=== PATIENT | male | born 1980 | race Caucasian/White ===

== ENCOUNTER 2017-06-27 12:16 | Emergency (ER) | payer BC, MEDICARE ==
[2017-06-27] MEDS ORDERED: Sodium Chloride 0.9% 1,000 ML IV ONE (12:35)
[2017-06-27 12:53] LABS: CHLORIDE,CL 107 mmol/L (98-107); SODIUM,NA 141 mmol/L (136-145)
[2017-06-27] MEDS ORDERED: Meclizine 25 MG Tab PO ONE (13:08)
[2017-06-27] MEDS ORDERED: Ondansetron 4 MG Tab.DIS PO ONE (13:09)
[2017-06-27] MEDS ORDERED: Metoprolol Tartrate 25 MG Tab PO ONE (13:09)
[2017-06-27] MEDS ORDERED: Metoprolol Tartrate 5 MG/5 ML SDV IVPUSH ONE (13:10)
--- NOTE | 2017-06-27 13:26 | EDM.PDOC ---
ED HPI GENERAL MEDICAL PROBLEM - General Chief Complaint: General Stated Complaint: weakness, dizziness, nausea Time Seen by Provider: 06/27/17 12:33 Source of Information: Reports: Patient History Limitations: Reports: No Limitations - History of Present Illness INITIAL COMMENTS - FREE TEXT/NARRATIVE: Patient driven here by friend for evaluation of dizziness and nausea. Woke around 11:30am with this. Says he has not had similar issues before. Denies chest pain, other new pain, SOB, sweating. Admits to being under a significant amount of stress over the last four days due to his brother being in court for and ultimately convicted of vehicular manslaughter. Has PRN BID anxiolytic but has not taken it. Had two pieces of toast today to eat. Appetite has also been poor over the last few days. New new medications or supplement. No recent illness or trauma. Has not hit head. Feels otherwise like usual self. ROS otherwise unremarkable. Dizziness has improved since arrival to ER. Not made worse with head rotation. Position change does not seem to affect complaint. General Pain Score (Numeric/FACES): 5 - Related Data Allergies Allergy/AdvReac Type Severity Reaction Status Date / Time acemetacin Allergy Intermediate Nausea and Verified 06/27/17 12:31 Vomiting acetaminophen Allergy Intermediate Nausea and Verified 06/27/17 12:31 Vomiting Home Meds: Home Meds traMADol HCl [Tramadol HCl] 50 mg PO Q6H PRN 07/27/14 [History] LORazepam 0.5 mg PO BID PRN 06/27/17 [History] Ondansetron [Zofran] 4 mg PO Q6H PRN #10 tab 06/27/17 [Rx] Past Medical History HEENT History: Reports: Impaired Vision Other HEENT History: wears glasses. 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 Neurological History: Reports: None Psychiatric History: Reports: ADD, ADHD, Addiction, Anxiety, Depression Endocrine/Metabolic History: Reports: Obesity/BMI 30+ Hematologic History: Reports: None Immunologic History: Reports: None Oncologic (Cancer) History: Reports: None Dermatologic History: Reports: None - Infectious Disease History Infectious Disease History: Reports: Chicken Pox - Past Surgical History Head Surgeries/Procedures: Reports: None HEENT Surgical History: Reports: Adenoidectomy, Oral Surgery, Tonsillectomy Cardiovascular Surgical History: Reports: None GI Surgical History: Reports: Colonoscopy Endocrine Surgical History: Reports: None Neurological Surgical History: Reports: None Musculoskeletal Surgical History: Reports: Other (See Below) Oncologic Surgical History: Reports: None Dermatological Surgical History: Reports: None - Past Imaging History Past Imaging History: Reports: CAT Scan, MRI Social & Family History - Family History HEENT: Reports: None Cardiac: Reports: Bypass, CAD Respiratory: Reports: Sleep Apnea GI: Reports: None OBGYN: Reports: None Musculoskeletal: Reports: None Neurological: Reports: None Psychiatric: Reports: None Endocrine/Metabolic: Reports: None Hematologic: Reports: None Immunologic: Reports: None Dermatologic: Reports: None Oncologic: Reports: Pancreatic - Tobacco Use Smoking Status *Q: Current Every Day Smoker Years of Tobacco use: 15 Packs/Tins Daily: 0.7 Month Tobacco Last Used: Trying to quit with no use during the last 3 weeks Second Hand Smoke Exposure: No - Caffeine Use Caffeine Use: Reports: Coffee, Soda - Alcohol Use Days Per Week of Alcohol Use: 0 Number of Drinks Per Day: 12 Total Drinks Per Week: 0 - Recreational Drug Use Recreational Drug Use: No Drug Use in Last 12 Months: No - Living Situation & Occupation Living situation: Reports: , with Family Occupation: Disabled ED ROS GENERAL - Review of Systems Review Of Systems: See Below Constitutional: Reports: Decreased Appetite. Denies: Fever, Chills, Malaise, Weakness, Fatigue, Night Sweats, Diaphoresis, Weight Loss, Weight Gain HEENT: Reports: No Symptoms. Denies: Vertigo, Vision Change Respiratory: Reports: No Symptoms Cardiovascular: Reports: Lightheadedness. Denies: Chest Pain, Dyspnea on Exertion, Palpitations, Syncope Endocrine: Reports: No Symptoms GI/Abdominal: Reports: Nausea. Denies: Abdominal Pain, Constipation, Diarrhea, Distension, Hematemesis, Hematochezia, Vomiting : Reports: No Symptoms Musculoskeletal: Reports: Other (has chronic pain/fibromyalgia. No acute changes noted. ) Skin: Reports: No Symptoms Neurological: Reports: Dizziness, Difficulty Walking (lost balance). Denies: Confusion, Headache, Numbness, Paresthesia, Seizure, Syncope, Tingling, Tremors , Trouble Speaking, Weakness, Change in Speech Psychiatric: Reports: Anxiety. Denies: Hallucinations, Homicidal Ideation, Suicidal Ideation Hematologic/Lymphatic: Reports: No Symptoms ED EXAM, GENERAL - Physical Exam Exam: See Below Exam Limited By: No Limitations General Appearance: Alert, No Apparent Distress, Obese Eye Exam: Bilateral Eye: EOMI, PERRL Ears: Normal External Exam, Normal Canal, Hearing Grossly Normal, Normal TMs Nose: Normal Inspection Throat/Mouth: Normal Inspection, Normal Lips, Normal Teeth (has dentures), Normal Gums, Normal Oropharynx, Normal Voice, No Airway Compromise Head: Atraumatic, Normocephalic Neck: Normal Inspection, Supple, Non-Tender, Full Range of Motion Respiratory/Chest: No Respiratory Distress, Lungs Clear, Normal Breath Sounds, No Accessory Muscle Use, Chest Non-Tender Cardiovascular: Normal Peripheral Pulses, Regular Rate, Rhythm, No Edema, No Murmur Peripheral Pulses: 2+: Radial (L), Radial (R) GI/Abdominal: Normal Bowel Sounds, Soft, Non-Tender, No Distention (Male) Exam: Deferred Rectal (Males) Exam: Deferred Extremities: Normal Inspection Neurological: Alert, Oriented, CN II-XII Intact, Normal Cognition, No Motor/ Sensory Deficits Psychiatric: Normal Affect, Normal Mood Skin Exam: Warm, Dry, Intact, Normal Color EKG INTERPRETATION EKG Date: 06/27/17 Time: 12:21 Rhythm: Other (Occasional PVCs. Otherwise sinus rhythm.) Rate (Beats/Min): 73 [place]: Normal P-Wave: Present QRS: Normal ST-T: Normal QT: Normal Comparison: No Change Course - Vital Signs Last Recorded V/S: Last Vital Signs Temp 36.7 C 06/27/17 13:35 Pulse 64 06/27/17 14:05 Resp 18 06/27/17 14:05 BP 125/83 06/27/17 14:05 Pulse Ox 99 06/27/17 14:05 - Orders/Labs/Meds Orders: Active Orders 24 hr Category Date Time Status Blood Glucose Check, Bedside [RC] ONETIME Care 06/27/17 12:37 Active EKG Documentation Completion [RC] ASDIRECTED Care 06/27/17 12:35 Active Chest 2V [CR] Stat Exams 06/27/17 13:58 Taken Sodium Chloride 0.9% [Saline Flush] Med 06/27/17 12:36 Active 10 ml FLUSH ASDIRECTED PRN Saline Lock Insert [OM.PC] Routine Oth 06/27/17 12:36 Ordered Medication Orders Sodium Chloride (Saline Flush) 10 ml FLUSH ASDIRECTED PRN PRN Reason: Keep Vein Open Last Admin: 06/27/17 15:34 Dose: 10 ml Admin: 06/27/17 13:28 Dose: 10 ml Labs: Laboratory Tests 06/27/17 06/27/17 06/27/17 Range/Units 11:25 11:25 12:25 WBC 10.0 (4.0-10.2) K/uL RBC 5.16 (4.33-5.41) M/uL Hgb 16.5 (13.1-16.8) g/dL Hct 48.1 (39.0-49.0) % MCV 93.2 (84.0-98.0) fL MCH 32.0 (28.2-33.3) pg MCHC 34.3 (31.7-36.0) g/dL RDW 13.9 (11.2-14.1) % Plt Count 130 L (150-350) K/uL Neut % (Auto) 54.7 (45.0-80.0) % Lymph % (Auto) 37.9 (10.0-50.0) % [place] % (Auto) 5.4 (2.0-14.0) % Eos % (Auto) 1.7 (0.0-5.0) % Baso % (Auto) 0.3 (0.0-2.0) % Neut # (Auto) 5.45 (1.40-7.00) K/uL Lymph # (Auto) 3.77 H (0.50-3.50) K/uL [place] # (Auto) 0.54 (0.00-1.00) K/uL Eos # (Auto) 0.17 (0.00-0.50) K/uL Baso # (Auto) 0.03 (0.00-0.20) K/uL D-Dimer, Quantitative < 100 (0-400) ng/mL Sodium (136-145) mmol/L Potassium (3.5-5.1) mmol/L Chloride (98-107) mmol/L Carbon Dioxide (21.0-32.0) mmol/L BUN (7-18) mg/dL Creatinine (0.51-1.17) mg/dL Est Cr Clr Drug Dosing mL/min Estimated GFR (MDRD) mL/min Glucose (74-106) mg/dL Lactic Acid (0.4-2.0) mmol/L Calcium (8.5-10.1) mg/dL Total Bilirubin (0.2-1.0) mg/dL AST (15-37) U/L ALT (12-78) U/L Alkaline Phosphatase (46-116) IU/L Creatine Kinase (26-308) U/L Creatine Kinase Index (0.0-2.5) % CK-MB (CK-2) (0.00-3.60) ng/mL Troponin I (0.000-0.056) ng/mL Total Protein (6.4-8.2) g/dL Albumin (3.4-5.0) g/dL TSH, Ultra Sensitive 0.740 (0.358-3.740) mIU/mL Specimen Type Urine Color Urine Appearance Urine pH (5.0-9.0) Ur Specific [place] (1.005-1.030) Urine Protein (NEGATIVE) mg/dL Urine Glucose (UA) (NEGATIVE) mg/dL Urine Ketones (NEGATIVE) mg/dL Urine Occult Blood (NEGATIVE) Urine Nitrite (NEGATIVE) Urine Bilirubin (NEGATIVE) Urine Urobilinogen (0.2-1.0) E.U./dL Ur Leukocyte Esterase (NEGATIVE) Urine RBC /HPF Urine WBC /HPF Ur Epithelial Cells /LPF Urine Bacteria (NONE TO FEW) /HPF 06/27/17 06/27/17 06/27/17 Range/Units 12:25 12:25 12:25 WBC (4.0-10.2) K/uL RBC (4.33-5.41) M/uL Hgb (13.1-16.8) g/dL Hct (39.0-49.0) % MCV (84.0-98.0) fL MCH (28.2-33.3) pg MCHC (31.7-36.0) g/dL RDW (11.2-14.1) % Plt Count (150-350) K/uL Neut % (Auto) (45.0-80.0) % Lymph % (Auto) (10.0-50.0) % [place] % (Auto) (2.0-14.0) % Eos % (Auto) (0.0-5.0) % Baso % (Auto) (0.0-2.0) % Neut # (Auto) (1.40-7.00) K/uL Lymph # (Auto) (0.50-3.50) K/uL [place] # (Auto) (0.00-1.00) K/uL Eos # (Auto) (0.00-0.50) K/uL Baso # (Auto) (0.00-0.20) K/uL D-Dimer, Quantitative (0-400) ng/mL Sodium 141 (136-145) mmol/L Potassium 3.5 (3.5-5.1) mmol/L Chloride 107 (98-107) mmol/L Carbon Dioxide 24.4 (21.0-32.0) mmol/L BUN 10 (7-18) mg/dL Creatinine 0.83 (0.51-1.17) mg/dL Est Cr Clr Drug Dosing 128.52 mL/min Estimated GFR (MDRD) > 60 mL/min Glucose 114 H (74-106) mg/dL Lactic Acid 1.3 (0.4-2.0) mmol/L Calcium 8.8 (8.5-10.1) mg/dL Total Bilirubin 0.7 (0.2-1.0) mg/dL AST 24 (15-37) U/L ALT 54 (12-78) U/L Alkaline Phosphatase 81 (46-116) IU/L Creatine Kinase 147 (26-308) U/L Creatine Kinase Index 0.2 (0.0-2.5) % CK-MB (CK-2) 0.30 (0.00-3.60) ng/mL Troponin I 0.000 (0.000-0.056) ng/mL Total Protein 7.1 (6.4-8.2) g/dL Albumin 3.8 (3.4-5.0) g/dL TSH, Ultra Sensitive (0.358-3.740) mIU/mL Specimen Type Urine Color Urine Appearance Urine pH (5.0-9.0) Ur Specific [place] (1.005-1.030) Urine Protein (NEGATIVE) mg/dL Urine Glucose (UA) (NEGATIVE) mg/dL Urine Ketones (NEGATIVE) mg/dL Urine Occult Blood (NEGATIVE) Urine Nitrite (NEGATIVE) Urine Bilirubin (NEGATIVE) Urine Urobilinogen (0.2-1.0) E.U./dL Ur Leukocyte Esterase (NEGATIVE) Urine RBC /HPF Urine WBC /HPF Ur Epithelial Cells /LPF Urine Bacteria (NONE TO FEW) /HPF 06/27/17 Range/Units 14:47 WBC (4.0-10.2) K/uL RBC (4.33-5.41) M/uL Hgb (13.1-16.8) g/dL Hct (39.0-49.0) % MCV (84.0-98.0) fL MCH (28.2-33.3) pg MCHC (31.7-36.0) g/dL RDW (11.2-14.1) % Plt Count (150-350) K/uL Neut % (Auto) (45.0-80.0) % Lymph % (Auto) (10.0-50.0) % [place] % (Auto) (2.0-14.0) % Eos % (Auto) (0.0-5.0) % Baso % (Auto) (0.0-2.0) % Neut # (Auto) (1.40-7.00) K/uL Lymph # (Auto) (0.50-3.50) K/uL [place] # (Auto) (0.00-1.00) K/uL Eos # (Auto) (0.00-0.50) K/uL Baso # (Auto) (0.00-0.20) K/uL D-Dimer, Quantitative (0-400) ng/mL Sodium (136-145) mmol/L Potassium (3.5-5.1) mmol/L Chloride (98-107) mmol/L Carbon Dioxide (21.0-32.0) mmol/L BUN (7-18) mg/dL Creatinine (0.51-1.17) mg/dL Est Cr Clr Drug Dosing mL/min Estimated GFR (MDRD) mL/min Glucose (74-106) mg/dL Lactic Acid (0.4-2.0) mmol/L Calcium (8.5-10.1) mg/dL Total Bilirubin (0.2-1.0) mg/dL AST (15-37) U/L ALT (12-78) U/L Alkaline Phosphatase (46-116) IU/L Creatine Kinase (26-308) U/L Creatine Kinase Index (0.0-2.5) % CK-MB (CK-2) (0.00-3.60) ng/mL Troponin I (0.000-0.056) ng/mL Total Protein (6.4-8.2) g/dL Albumin (3.4-5.0) g/dL TSH, Ultra Sensitive (0.358-3.740) mIU/mL Specimen Type Urinvoid Urine Color Yellow Urine Appearance Clear Urine pH 8.5 (5.0-9.0) Ur Specific [place] 1.015 (1.005-1.030) Urine Protein Negative (NEGATIVE) mg/dL Urine Glucose (UA) Negative (NEGATIVE) mg/dL Urine Ketones Negative (NEGATIVE) mg/dL Urine Occult Blood Small H (NEGATIVE) Urine Nitrite Negative (NEGATIVE) Urine Bilirubin Negative (NEGATIVE) Urine Urobilinogen 0.2 (0.2-1.0) E.U./dL Ur Leukocyte Esterase Negative (NEGATIVE) Urine RBC 5-10 H /HPF Urine WBC 0-5 /HPF Ur Epithelial Cells Few /LPF Urine Bacteria Occasional (NONE TO FEW) /HPF Meds: Medications Generic Name Dose Route Start Last Admin Trade Name Freq PRN Reason Stop Dose Admin Sodium Chloride 10 ml 06/27/17 12:36 06/27/17 15:34 Saline Flush FLUSH 10 ml ASDIRECTED PRN Administration Keep Vein Open Discontinued Medications Generic Name Dose Route Start Last Admin Trade Name Freq PRN Reason Stop Dose Admin Sodium Chloride 1,000 mls @ 999 mls/hr 06/27/17 12:35 06/27/17 12:39 Normal Saline IV 06/27/17 13:35 999 mls/hr .BOLUS ONE Administration Lorazepam 0.5 mg 06/27/17 15:23 06/27/17 15:34 Ativan IVPUSH 06/27/17 15:24 0.5 mg ONETIME ONE Administration Meclizine HCl 25 mg 06/27/17 13:08 06/27/17 13:27 Antivert PO 06/27/17 13:09 25 mg ONETIME ONE Administration Metoprolol Tartrate 25 mg 06/27/17 13:09 06/27/17 15:33 Lopressor PO 06/27/17 13:10 Not Given ONETIME ONE Metoprolol Tartrate 2.5 mg 06/27/17 13:10 06/27/17 13:27 Lopressor IVPUSH 06/27/17 13:11 2.5 mg ONETIME ONE Administration Ondansetron HCl 4 mg 06/27/17 13:09 06/27/17 13:27 Zofran Odt PO 06/27/17 13:10 4 mg ONETIME ONE Administration - Radiology Interpretation Free Text/Narrative:: Chest xray overall unremarkable. No infiltrates. - Re-Assessments/Exams Free Text/Narrative Re-Assessment/Exam: 06/27/17 13:35 Patient already improving by the time he was evaluated. Noted that he had elevated BP upon arrival but this had begun to improve. Non-focal exam. No nystagmus. Initial labs, including troponin, overall unremarkable. EKG did not suggest ischemia or cardiac cause for complaint. [place] to be more likely stress related and could not discount contribution from earlier elevated BP. Patient given Meclizine, Zofran, and small amount Lopressor. Observed. 06/27/17 16:05 Additional labs ordered, including DDimer, after family mentioned that they felt patient was more SOB than usual. Patient himself denied this. Labs unremarkable. Chest xray unremarkable. Patient's BP improved immediately after Lopressor. He felt that he was about 80 % improved compared to initial presentation. Extensive amount of time spent discussing patient's smoking and lifestyle risk factors. Strongly encouraged to make changes in order to promote better health. Small dose Ativan IV given. This resulted in complete resolution of patient's complaint. He no longer had any sensation of lightheadedness and said that he felt like his usual self. Plans made to discharge patient home. Continue to strongly suspect anxiety and stress as cause for today's complaint. Patient knows to return to the ER over the weekend if problems return. Extensive precautions reviewed prior to discharge. He is to take his home medication for anxiety as prescribed for the next 3 days. Zofran Rx sent to pharmacy in case nausea returns. He is also encouraged to last picker Meclizine for PRN use. Patient had no further questions and was discharged from the ER in much improved condition. Ambulated/changed position easily. Departure - Departure Time of Disposition: 15:56 Disposition: Home, Self-Care 01 Condition: Good Clinical Impression: Anxiety, Dizziness - Discharge Information Prescriptions: Ondansetron [Zofran] 4 mg PO Q6H PRN #10 tab PRN Reason: Nausea Referrals: Pasha Mauro NP [Primary Care Provider] - Forms: ED Department Discharge Additional Instructions: Take all of your medications as prescribed, including Lorazepam. You may also last picker Meclizine from the pharmacy. It needs no prescription. You may take one tablet every 6 hours as needed to help with dizziness if it returns. You received a prescription for nausea. Take it as needed for nausea if it returns. Dietary changes as discussed strongly recommended. Follow up as needed in ER over the weekend if you re-develop problems. - My Orders Last 24 Hours: My Active Orders 06/27/17 12:35 EKG Documentation Completion [RC] ASDIRECTED 06/27/17 12:36 Sodium Chloride 0.9% [Saline Flush] 10 ml FLUSH ASDIRECTED PRN Saline Lock Insert [OM.PC] Routine 06/27/17 12:37 Blood Glucose Check, Bedside [RC] ONETIME 06/27/17 13:58 Chest 2V [CR] Stat - Assessment/Plan Last 24 Hours: My Active Orders 06/27/17 12:35 EKG Documentation Completion [RC] ASDIRECTED 06/27/17 12:36 Sodium Chloride 0.9% [Saline Flush] 10 ml FLUSH ASDIRECTED PRN Saline Lock Insert [OM.PC] Routine 06/27/17 12:37 Blood Glucose Check, Bedside [RC] ONETIME 06/27/17 13:58 Chest 2V [CR] Stat
[2017-06-27] MEDS: Sodium Chloride 0.9% 10 ML Syringe FLUSH PRN ×2 (13:28→15:34)
[2017-06-27] MEDS ORDERED: LORazepam 2 MG/ML MDV IVPUSH ONE (15:23)
[2017-06-27 17:13] VITALS: BP 123/69
== END 2017-06-27 16:20 | disposition home or self-care (01) ==
LOC: LL.ED 12:16
DX: F41.9 Anxiety disorder, unspecified (principal); R42 Dizziness and giddiness; F17.210 Nicotine dependence, cigarettes, uncomplicated; Z88.6 Allergy status to analgesic agent; Z88.8 Allergy status to other drugs, medicaments and biological substances
CPT/HCPCS: 36415; 71020; 80053; 81001; 82550; 82553; 82962; 83605; 84443; 84484; 85025; 85379; 93005; 96361; 96374; 96375; 99284; A9270; J2060; J7030; J7050; J3490

== ENCOUNTER 2017-06-28 19:26 | Emergency (ER) | payer BC, MEDICARE ==
[2017-06-28] MEDS ORDERED: Sodium Chloride 0.9% 10 ML Syringe FLUSH PRN (19:31)
[2017-06-28] MEDS ORDERED: methylPREDNISolone Sodium Succinate 125 MG/2 ML SDV IVPUSH ONE (20:07)
[2017-06-28 20:16] VITALS: BP 130/94
[2017-06-28 20:22] LABS: CHLORIDE,CL 106 mmol/L (98-107); SODIUM,NA 141 mmol/L (136-145)
--- NOTE | 2017-06-28 20:35 | EDM.PDOC ---
ED HPI GENERAL MEDICAL PROBLEM - General Chief Complaint: Neurological Problem Stated Complaint: blurred vision, dizziness Time Seen by Provider: 06/28/17 19:59 Source of Information: Reports: Patient History Limitations: Reports: No Limitations - History of Present Illness INITIAL COMMENTS - FREE TEXT/NARRATIVE: Patient comes to ER with complaint of dizziness and blurred vision. Was seen here yesterday for dizziness. He had significant improvement with Meclizine as well as antihypertensive. Additional improvement with anxiolytic. Had essentially complete resolution of complaint after receiving Ativan. [place] to have stress/anxiety component to his complaint. Discharged home with PRN Meclizine and Zofran. Tonight he re-presents to ER. He is concerned due to his vision feeling funny and having initial hard time focusing whenever he moves his head. It does clear within a few seconds. Head rotation continues to trigger mild dizziness, although patient admits that it is much better today than it was yesterday. It did not bother him when he was turning while laying in bed overnight. Has had an emesis as a result of the vertigo since discharge from ER No other changes. Pain free. 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: Other Medication(s) - Related Data Allergies Allergy/AdvReac Type Severity Reaction Status Date / Time acemetacin Allergy Intermediate Nausea and Verified 06/28/17 19:30 Vomiting acetaminophen Allergy Intermediate Nausea and Verified 06/28/17 19:30 Vomiting Home Meds: Home Meds traMADol HCl [Tramadol HCl] 50 mg PO Q6H PRN 07/27/14 [History] LORazepam 0.5 mg PO BID PRN 06/27/17 [History] Ondansetron [Zofran] 4 mg PO Q6H PRN #10 tab 06/27/17 [Rx] Meclizine [Antivert] 1 tab PO DAILY 06/28/17 [History] Past Medical History HEENT History: Reports: Impaired Vision Other HEENT History: wears glasses. 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 Neurological History: Reports: None Psychiatric History: Reports: ADD, ADHD, Addiction, Anxiety, Depression Endocrine/Metabolic History: Reports: Obesity/BMI 30+ Hematologic History: Reports: None Immunologic History: Reports: None Oncologic (Cancer) History: Reports: None Dermatologic History: Reports: None - Infectious Disease History Infectious Disease History: Reports: Chicken Pox - Past Surgical History Head Surgeries/Procedures: Reports: None HEENT Surgical History: Reports: Adenoidectomy, Oral Surgery, Tonsillectomy Cardiovascular Surgical History: Reports: None GI Surgical History: Reports: Colonoscopy Endocrine Surgical History: Reports: None Neurological Surgical History: Reports: None Musculoskeletal Surgical History: Reports: Other (See Below) Oncologic Surgical History: Reports: None Dermatological Surgical History: Reports: None - Past Imaging History Past Imaging History: Reports: CAT Scan, MRI Social & Family History - Family History HEENT: Reports: None Cardiac: Reports: Bypass, CAD Respiratory: Reports: Sleep Apnea GI: Reports: None OBGYN: Reports: None Musculoskeletal: Reports: None Neurological: Reports: None Psychiatric: Reports: None Endocrine/Metabolic: Reports: None Hematologic: Reports: None Immunologic: Reports: None Dermatologic: Reports: None Oncologic: Reports: Pancreatic - Tobacco Use Smoking Status *Q: Current Every Day Smoker Years of Tobacco use: 15 Packs/Tins Daily: 0.7 Month Tobacco Last Used: Trying to quit with no use during the last 3 weeks Second Hand Smoke Exposure: No - Caffeine Use Caffeine Use: Reports: Coffee, Soda - Alcohol Use Days Per Week of Alcohol Use: 0 Number of Drinks Per Day: 12 Total Drinks Per Week: 0 - Recreational Drug Use Recreational Drug Use: No Drug Use in Last 12 Months: No - Living Situation & Occupation Living situation: Reports: , with Family Occupation: Disabled ED ROS GENERAL - Review of Systems Review Of Systems: See Below Constitutional: Reports: No Symptoms HEENT: Reports: Vertigo, Vision Change. Denies: Ear Discharge, Ear Pain, Eye Discharge, Eye Pain, Nose Pain, Rhinitis, Sinus Problem, Throat Pain, Throat Swelling Respiratory: Reports: No Symptoms Cardiovascular: Reports: No Symptoms GI/Abdominal: Reports: Nausea (intermittent), Vomiting (once in last 24 hours). Denies: Abdominal Pain, Constipation, Diarrhea, Hematemesis, Hematochezia : Reports: No Symptoms Musculoskeletal: Reports: No Symptoms Skin: Reports: No Symptoms Neurological: Reports: No Symptoms Psychiatric: Reports: No Symptoms Hematologic/Lymphatic: Reports: No Symptoms ED EXAM, GENERAL - Physical Exam Exam: See Below Exam Limited By: No Limitations General Appearance: Alert, WD/WN, No Apparent Distress, Other (Patient ambulated well, sat up straight on ER bed, changed position easily. Appeared comfortable. ) Eye Exam: Bilateral Eye: EOMI, Normal Inspection, PERRL Ears: Normal External Exam, Normal Canal, Hearing Grossly Normal, Normal TMs Nose: Normal Inspection Throat/Mouth: Normal Inspection, Normal Voice, No Airway Compromise Head: Atraumatic, Normocephalic Neck: Normal Inspection, Supple, Non-Tender, Full Range of Motion Respiratory/Chest: No Respiratory Distress, Lungs Clear, Normal Breath Sounds, No Accessory Muscle Use, Chest Non-Tender Cardiovascular: Normal Peripheral Pulses, Regular Rate, Rhythm, No Murmur Peripheral Pulses: 2+: Radial (L), Radial (R) GI/Abdominal: Normal Bowel Sounds, Soft, No Distention Extremities: Normal Inspection, Normal Range of Motion, Non-Tender, No Pedal Edema, Normal Capillary Refill Neurological: Alert, Oriented, CN II-XII Intact, Normal Cognition, Normal Gait, Normal Reflexes, No Motor/Sensory Deficits Psychiatric: Normal Affect, Normal Mood Skin Exam: Warm, Dry, Intact, Normal Color Course - Vital Signs Last Recorded V/S: Last Vital Signs Temp 36.8 C 06/28/17 20:15 Pulse 82 06/28/17 20:15 Resp 16 06/28/17 20:15 BP 130/94 H 06/28/17 20:15 Pulse Ox 99 06/28/17 20:15 - Orders/Labs/Meds Orders: Active Orders 24 hr Category Date Time Status Head wo Cont [CT] Stat Exams 06/28/17 19:27 Taken Saline Lock Insert [OM.PC] Routine Oth 06/28/17 19:31 Ordered Labs: Laboratory Tests 06/28/17 06/28/17 Range/Units 19:55 19:55 WBC 11.1 H (4.0-10.2) K/uL RBC 5.14 (4.33-5.41) M/uL Hgb 16.3 (13.1-16.8) g/dL Hct 48.9 (39.0-49.0) % MCV 95.1 (84.0-98.0) fL MCH 31.7 (28.2-33.3) pg MCHC 33.3 (31.7-36.0) g/dL RDW 14.1 (11.2-14.1) % Plt Count 126 L (150-350) K/uL Neut % (Auto) 68.0 (45.0-80.0) % Lymph % (Auto) 26.9 (10.0-50.0) % [place] % (Auto) 3.6 (2.0-14.0) % Eos % (Auto) 1.2 (0.0-5.0) % Baso % (Auto) 0.3 (0.0-2.0) % Neut # (Auto) 7.58 H (1.40-7.00) K/uL Lymph # (Auto) 2.99 (0.50-3.50) K/uL [place] # (Auto) 0.40 (0.00-1.00) K/uL Eos # (Auto) 0.13 (0.00-0.50) K/uL Baso # (Auto) 0.03 (0.00-0.20) K/uL Sodium 141 (136-145) mmol/L Potassium 3.5 (3.5-5.1) mmol/L Chloride 106 (98-107) mmol/L Carbon Dioxide 26.5 (21.0-32.0) mmol/L BUN 8 (7-18) mg/dL Creatinine 0.85 (0.51-1.17) mg/dL Est Cr Clr Drug Dosing 125.50 mL/min Estimated GFR (MDRD) > 60 mL/min Glucose 111 H (74-106) mg/dL Calcium 8.9 (8.5-10.1) mg/dL Total Bilirubin 0.3 (0.2-1.0) mg/dL AST 21 (15-37) U/L ALT 50 (12-78) U/L Alkaline Phosphatase 83 (46-116) IU/L Total Protein 7.3 (6.4-8.2) g/dL Albumin 3.9 (3.4-5.0) g/dL Meds: Medications Discontinued Medications Generic Name Dose Route Start Last Admin Trade Name Freq PRN Reason Stop Dose Admin Methylprednisolone Sodium Succinate 125 mg 06/28/17 20:07 06/28/17 20:13 Solu-Medrol IVPUSH 06/28/17 20:08 125 mg ONETIME ONE Administration Sodium Chloride 10 ml 06/28/17 19:31 06/28/17 20:13 Saline Flush FLUSH 10 ml ASDIRECTED PRN Administration Keep Vein Open - Radiology Interpretation Free Text/Narrative:: CT of head negative for acute change per Radiology. CT Results Date: 06/28/17 CT Results Time: 20:10 - Re-Assessments/Exams Free Text/Narrative Re-Assessment/Exam: Plan is to continue PRN Meclizine and Zofran. Observe for changes. Follow up as needed. Patient self reports that overall he feels better today compared to yesterday. To follow up Friday in clinic for recheck. Departure - Departure Time of Disposition: : Disposition: Home, Self-Care 01 Condition: Good Clinical Impression: Vertigo - Discharge Information Referrals: PCP,None [Primary Care Provider] - Forms: ED Department Discharge Additional Instructions: Continue Meclizine every 6 hours. Watch for changes. Follow up Friday with primary clinic and possibly be evaluated by PT for maneuvers that can be helpful for some types of vertigo. Follow up earlier as needed if you have problems. - My Orders Last 24 Hours: My Active Orders 06/28/17 19:27 Head wo Cont [CT] Stat 06/28/17 19:31 Saline Lock Insert [OM.PC] Routine - Assessment/Plan Last 24 Hours: My Active Orders 06/28/17 19:27 Head wo Cont [CT] Stat 06/28/17 19:31 Saline Lock Insert [OM.PC] Routine
== END 2017-06-28 20:45 | disposition home or self-care (01) ==
LOC: LL.ED 19:26
DX: R42 Dizziness and giddiness (principal); I25.2 Old myocardial infarction; F41.9 Anxiety disorder, unspecified; F32.9 Major depressive disorder, single episode, unspecified; E66.9 Obesity, unspecified; F17.210 Nicotine dependence, cigarettes, uncomplicated; Z88.6 Allergy status to analgesic agent; Z90.49 Acquired absence of other specified parts of digestive tract; Z88.1 Allergy status to other antibiotic agents; Z79.899 Other long term (current) drug therapy
CPT/HCPCS: 36415; 70450; 80053; 85025; 96374; 99284; J2930; J7050

== ENCOUNTER 2019-09-29 06:55 | Emergency (ER) | payer BC ==
[2019-09-29] MEDS ORDERED: methylPREDNISolone Sodium Succinate 125 MG/2 ML SDV IM ONE (07:32)
[2019-09-29] MEDS ORDERED: diphenhydrAMINE 50 MG/ML SDV IM ONE (07:32)
[2019-09-29 08:04] VITALS: BP 113/85; PULSE 88
--- NOTE | 2019-09-29 08:04 | EDM.PDOC ---
ED HPI GENERAL MEDICAL PROBLEM - General Chief Complaint: Skin Complaint Stated Complaint: rash Time Seen by Provider: 09/29/19 07:12 Source of Information: Reports: Patient History Limitations: Reports: No Limitations - History of Present Illness INITIAL COMMENTS - FREE TEXT/NARRATIVE: Patient comes to ER complaining of pruritic rash. Started this past weekend while visiting his mother. Was seen at local urgent care and presumed to have hot tub folliculitis. Pt says his mother used the same hot tub every day with him at her jail community and neither her nor any other residents had a rash. Was given Cipro/Hydroxyzine/Prednisone. [place] like he was having allergic reaction to the Cipro and stopped it (tongue felt bigger/throat felt funny). Had anxiety attack while away also and reports he is out of his anxiety medicine (benzodiazepine). He plans to get refill this week at [facility] visit. Has not been taking his regular medicines, just the Hydroxyzine and Prednisone. Itching was getting better last night but today worsened again. Denies any new foods/spices/detergents/chemical exposures/soaps, etc. 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 - Related Data Allergies Allergy/AdvReac Type Severity Reaction Status Date / Time acetaminophen [From Tylenol] Allergy Nausea and Verified 09/29/19 07:03 Vomiting ciprofloxacin Allergy Edema Verified 09/29/19 07:04 Home Meds: Home Meds traMADol HCl [Tramadol HCl] 50 mg PO Q6H PRN 07/27/14 [History] LORazepam 0.5 mg PO BID PRN 06/27/17 [History] Ondansetron [Zofran] 4 mg PO Q6H PRN #10 tab 06/27/17 [Rx] Meclizine [Antivert] 1 tab PO DAILY 06/28/17 [History] diphenhydrAMINE [Benadryl] 25 mg PO Q6H PRN 09/29/19 [History] hydrOXYzine HCL [Hydroxyzine HCl] 10 mg PO BID 09/29/19 [History] predniSONE [Prednisone] 60 mg PO DAILY 09/29/19 [History] Past Medical History HEENT History: Reports: Impaired Vision Other HEENT History: wears glasses. 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 Neurological History: Reports: None Psychiatric History: Reports: ADD, ADHD, Addiction, Anxiety, Depression Endocrine/Metabolic History: Reports: Obesity/BMI 30+ Hematologic History: Reports: None Immunologic History: Reports: None Oncologic (Cancer) History: Reports: None Dermatologic History: Reports: None - Infectious Disease History Infectious Disease History: Reports: Chicken Pox - Past Surgical History Head Surgeries/Procedures: Reports: None HEENT Surgical History: Reports: Adenoidectomy, Oral Surgery, Tonsillectomy Cardiovascular Surgical History: Reports: None GI Surgical History: Reports: Colonoscopy Endocrine Surgical History: Reports: None Neurological Surgical History: Reports: None Musculoskeletal Surgical History: Reports: Other (See Below) Oncologic Surgical History: Reports: None Dermatological Surgical History: Reports: None - Past Imaging History Past Imaging History: Reports: CAT Scan, MRI Social & Family History - Family History HEENT: Reports: None Cardiac: Reports: Bypass, CAD Respiratory: Reports: Sleep Apnea GI: Reports: None OBGYN: Reports: None Musculoskeletal: Reports: None Neurological: Reports: None Psychiatric: Reports: None Endocrine/Metabolic: Reports: None Hematologic: Reports: None Immunologic: Reports: None Dermatologic: Reports: None Oncologic: Reports: Pancreatic - Tobacco Use Smoking Status *Q: Current Every Day Smoker Years of Tobacco use: 25 Packs/Tins Daily: 1 Second Hand Smoke Exposure: No - Caffeine Use Caffeine Use: Reports: Coffee, Soda - Living Situation & Occupation Living situation: Reports: , with Family Occupation: Disabled ED ROS GENERAL - Review of Systems Review Of Systems: See Below Constitutional: Reports: No Symptoms HEENT: Reports: No Symptoms. Denies: Rhinitis, Throat Swelling Respiratory: Reports: No Symptoms. Denies: Shortness of Breath, Wheezing Cardiovascular: Reports: No Symptoms GI/Abdominal: Reports: No Symptoms : Reports: No Symptoms Musculoskeletal: Reports: No Symptoms Skin: Reports: Rash, Urticaria Neurological: Reports: No Symptoms Psychiatric: Reports: Anxiety Hematologic/Lymphatic: Reports: No Symptoms Immunologic: Reports: Other (his only concern was possible reaction to the Cipro ) ED EXAM, SKIN/RASH Exam: See Below Exam Limited By: No Limitations General Appearance: Alert, WD/WN, No Apparent Distress, Obese Eye Exam: Bilateral Eye: EOMI, PERRL Ears: Normal External Exam, Hearing Grossly Normal Nose: Normal Inspection Throat/Mouth: Normal Inspection, Normal Lips, Normal Voice, No Airway Compromise Head: Atraumatic, Normocephalic Neck: Normal Inspection, Supple, Non-Tender, Full Range of Motion Respiratory/Chest: No Respiratory Distress, Lungs Clear, Normal Breath Sounds, No Accessory Muscle Use Cardiovascular: Regular Rate, Rhythm, No Murmur GI/Abdominal: Normal Bowel Sounds, Soft, Non-Tender (Male) Exam: Deferred Rectal (Males) Exam: Deferred Back Exam: Normal Inspection Extremities: Normal Range of Motion, Non-Tender, No Pedal Edema, Normal Capillary Refill Neurological: Alert, Oriented, Normal Cognition, Normal Gait Psychiatric: Normal Affect, Normal Mood Skin: Warm, Dry Location, Skin: Generalized Characteristics: Macular, Papular, Urticarial. No: Linear, Vesicular, Bullous Associated features: No: Tenderness, Swelling, Scaling, Inflammation, Crusting, Weeping Course - Vital Signs Last Recorded V/S: Last Vital Signs Temp 37.2 C 09/29/19 07:00 Pulse 88 09/29/19 08:03 Resp 16 09/29/19 08:03 BP 113/85 09/29/19 08:03 Pulse Ox 95 09/29/19 08:03 - Orders/Labs/Meds Meds: Medications Discontinued Medications Generic Name Dose Route Start Last Admin Trade Name Stewart PRN Reason Stop Dose Admin Diphenhydramine HCl 50 mg 09/29/19 07:32 09/29/19 07:39 Benadryl IM 09/29/19 07:33 50 mg ONETIME ONE Administration Methylprednisolone Sodium Succinate 125 mg 09/29/19 07:32 09/29/19 07:40 Solu-Medrol IM 09/29/19 07:33 125 mg ONETIME ONE Administration - Re-Assessments/Exams Free Text/Narrative Re-Assessment/Exam: Appearance of rash does not appear consistent with hot tub folliculitis. At this time given patient's history, trigger for the hives is unknown. He is reporting increased anxiety which is a possible trigger for urticaria. Unknown if patient is actually allergic to Cipro as the sensation of throat fullness may be related to the urticaria which were present before starting that medication. Plan at this time is to give patient Solumedrol IM and Benadryl IM. He is to use the Hydroxyzine he was given for the itching. He has an appointment with local primary to be seen/restarted on his anxiety meds. He and his are to remain vigilant as to identifying potential triggers for this reaction. To get rechecked if no significant improvement within 48 hours. To return to ER if he has sudden worsening symptoms/airway problems. Departure - Departure Time of Disposition: 07:59 Disposition: Home, Self-Care 01 Condition: Good Clinical Impression: Urticaria - Discharge Information *PRESCRIPTION DRUG MONITORING PROGRAM REVIEWED*: Not Applicable *COPY OF PRESCRIPTION DRUG MONITORING REPORT IN PATIENT SEGUN: Not Applicable Instructions: Hives Referrals: PCP,Unknown [Primary Care Provider] - Forms: ED Department Discharge Additional Instructions: Finish the Prednisone as prescribed. Continue Hydroxyzine for itching. Adding the Benadryl 50mg every 6 hours may also help but be aware of sedation effects when combining the Hydroxyzine and Benadryl. Do not drive! Follow up with your scheduled appointment at [facility] and get re-started on your anxiety meds. If no improvement within 24-48 hours recommend follow up/Derm evaluation. Follow up in ER if you have sudden worsening problems/shortness of breath/airway swelling. Sepsis Event Note - Evaluation Sepsis Screening Result: No Definite Risk - Focused Exam Vital Signs: Vital Signs Temp Pulse Resp BP Pulse Ox 09/29/19 08:03 88 16 113/85 95 09/29/19 07:47 83 16 137/97 H 94 L 09/29/19 07:31 94 16 119/94 H 93 L 09/29/19 07:15 94 16 141/91 H 93 L 09/29/19 07:00 37.2 C 99 19 153/98 H 95 Date Exam was Performed: 09/29/19 Time Exam was Performed: 08:24
== END 2019-09-29 08:15 | disposition home or self-care (01) ==
LOC: LL.ED 06:55
DX: L50.9 Urticaria, unspecified (principal); J44.9 Chronic obstructive pulmonary disease, unspecified; F17.210 Nicotine dependence, cigarettes, uncomplicated; Z88.1 Allergy status to other antibiotic agents; Z88.6 Allergy status to analgesic agent
CPT/HCPCS: 99282; J1200; J2930

== ENCOUNTER 2020-10-06 03:41 | Emergency (ER) | payer BC, OTHER ==
[2020-10-06 03:49] VITALS: BP 135/85; PULSE 74
--- NOTE | 2020-10-06 04:08 | EDM.PDOC ---
ED HPI GENERAL MEDICAL PROBLEM - General Chief Complaint: General Stated Complaint: left hip/side "weird sensation" Time Seen by Provider: 10/06/20 04:05 Source of Information: Reports: Patient, Old Records ([facility] chart/EMR) History Limitations: Reports: No Limitations - History of Present Illness INITIAL COMMENTS - FREE TEXT/NARRATIVE: Patient drove himself to the emergency room via private automobile for evaluation of intermittent 8/10 sharp left hip pain with no history of fall, injury, etc.. At times he feels that there is something loose in this area, however no direct evidence of instability, neurological deficits, etc.. The patient denies any chest pain/pressure, heart flutter, dizziness, orthostasis, orthopnea, diaphoresis, paresthesias, recent decreased exercise tolerance, or any other anginal-type symptoms. No recent history of abdominal pain, heartburn, nausea, diarrhea, melena, gross hematochezia, or any food intolerance, including fatty foods, etc.. He denies any gross hematuria, colic, or other UTI symptoms. The patient also denies any recent fever, cough, wheezing, dyspnea, etc.. Onset: Gradual Onset Date: 10/03/20 Duration: Getting Worse, Intermittent Location: Reports: Lower Extremity, Left. Denies: Head, Face, Neck, Chest, Abdomen, Back, Pelvis, Upper Extremity, Left, Upper Extremity, Right, Lower Extremity, Right, Radiates to Quality: Reports: Same as Previous Episode, Sharp Severity: Moderate Improves with: Reports: None Worsens with: Reports: Movement Context: Reports: Other (As above). Denies: Sick Contact, Trauma Associated Symptoms: Denies: Confusion, Chest Pain, Cough, Diaphoresis, Fever/Chills, Headaches, Loss of Appetite, Nausea/Vomiting, Shortness of Breath, Syncope, Weakness Treatments HALL TENDER: Reports: Other (see below) (None) Left Hip Pain Score (Numeric/FACES): 8 - Related Data Allergies Allergy/AdvReac Type Severity Reaction Status Date / Time acetaminophen [From Tylenol] Allergy Nausea and Verified 10/06/20 04:19 Vomiting ciprofloxacin Allergy Edema Verified 10/06/20 04:19 fluoxetine [From Prozac] AdvReac Other Verified 10/06/20 04:19 Home Meds: Home Meds Ketorolac [Toradol] 10 mg PO DAILY PRN 10/06/20 [History] Phentermine HCl 37.5 mg PO DAILY 10/06/20 [History] busPIRone HCl [Buspirone HCl] 15 mg PO TID PRN 10/06/20 [History] Past Medical History HEENT History: Reports: Impaired Vision. Denies: Allergic Rhinitis, Cataract, Glaucoma, Hard of Hearing, Macular Degeneration, Otitis Media, Retinal Detachment Other HEENT History: Patient wears glasses. Complete upper dentures. Cardiovascular History: Reports: Arrhythmia, NV, Other (See Below). Denies: Afib, Aneurysm, Blood Clots/VTE/DVT, CAD, Cardiomyopathy, Heart Murmur, High Cholesterol, Hypertension, PVD, Syncope Other Cardiovascular History: PVCs. Borderline first-degree A-V block. Intermittent elevated blood pressures possibly secondary to anxiety. Respiratory History: Reports: COPD, Pulmonary Fibrosis, Other (See Below). Denies: Asthma, Bronchitis, Recurrent, Intubation, Previous, PE, Pneumothorax, Sleep Apnea, TB Other Respiratory History: COPD and pulmonary fibrosis by chest x-ray with no medical therapy Gastrointestinal History: Reports: Colon Polyp, Diverticulosis, Gastritis, Other (See Below). Denies: Bowel Obstruction, Celiac Disease, Cholelithiasis, Chronic Constipation, Chronic Diarrhea, GERD, GI Bleed, Hepatitis, Helicobacter Pylori, Inflammatory Bowel Disease, Irritable Bowel Syndrome, Jaundice, Pancreatitis, PUD Other Gastrointestinal History: Small left inguinal hernia by CT scan. Sigmoid diverticulosis with history of recurrent diverticulitis with last episode on 03/14/2015. Nonsymptomatic cholelithiasis versus gallbladder polyp by CT scan. Genitourinary History: Reports: Pyelonephritis, Renal Calculus, Other (See Below). Denies: Acute Renal Failure, BPH, Chronic Renal Insuffiency, Retention, Urinary, STD, Urinary Incontinence, UTI, Recurrent Other Genitourinary History: Possible previous left-sided urolithiasis however not evident from previous CT scans. Musculoskeletal History: Reports: Arthritis, Back Pain, Chronic, Fracture, Fibromyalgia, Neck Pain, Chronic, Osteoarthritis, Other (See Below). Denies: Gout, RA, SLE Other Musculoskeletal History: Left ankle and foot fractures resulting in disability from a Workmen's Compensation injury in 2007. Right distal phalangeal fracture of digit #4 of the hand on 06/09/2007. Mild bilateral elbow fractures as a child. Chronic nonspecific rib pain. Neurological History: Reports: Headaches, Chronic, Vertigo. Denies: Cerebral Aneurysms, Concussion, CVA, Head Trauma, Migraines, MS, Parkinson's, Seizure, TIA Psychiatric History: Reports: ADD, ADHD, Addiction, Anxiety, Bipolar, Depression, Other (See Below). Denies: Abuse, Victim of, Alzheimers Disease, Dementia, Psych Hospitalization(s), PTSD, Suicide Attempt, Suicidal Ideation Other Psychiatric History: History of chronic narcotic and Ultram use secondary to chronic pain. Intermittent binge drinking. Endocrine/Metabolic History: Reports: Obesity/BMI 30+. Denies: Diabetes, Type I, Diabetes, Type II, Diabetes Mellitus, Type 3c, Hypothyroidism, IDDM, Osteopenia, Osteoporosis Hematologic History: Reports: Other (See Below). Denies: Anemia, Blood Transfusion(s) Other Hematologic History: Mild intermittent thrombocytopenia. Immunologic History: Reports: None. Denies: AIDS, HIV, SLE Oncologic (Cancer) History: Reports: None. Denies: Basal Cell Carcinoma, Colon, Hodgkin's Lymphoma, Leukemia, Lymphoma, Prostate, Squamous Cell Carcinoma Dermatologic History: Reports: None. Denies: Eczema, Psoriasis - Infectious Disease History Infectious Disease History: Reports: Chicken Pox (X2). Denies: C-Difficile, Measles, Meningitis, Mononucleosis, MRSA, Mumps, Novel Coronavirus, Pertussis (Whooping Cough), Rheumatic Fever, Rubella, Scarlet Fever, Shingles, TB, VRE - Past Surgical History Head Surgeries/Procedures: Reports: None HEENT Surgical History: Reports: Adenoidectomy, Oral Surgery, Tonsillectomy, Other (See Below). Denies: Cataract Surgery, Eye Surgery, Laser Surgery, LASIK, Myringotomy w Tube(s) Other HEENT Surgeries/Procedures: Tonsillectomy and adenoidectomy at age 7. Multiple teeth extractions with complete upper dentures. Cardiovascular Surgical History: Reports: None. Denies: Varicose, Vascular Surgery Respiratory Surgical History: Reports: None. Denies: Thoracentesis GI Surgical History: Reports: Colonoscopy, Other (See Below). Denies: Appendectomy, Cholecystectomy, EGD, Hernia, Abdominal, Hernia, Inguinal, Hernia Repair/Other, Polypectomy Other GI Surgeries/Procedures: Colonoscopy on 07/28/2014. Male Surgical History: Reports: Circumcision, Other (See Below). Denies: TURP-Transurethral Resection of Prostate, Vasectomy Other Male Surgeries/Procedures: Circumcision as an . Endocrine Surgical History: Reports: None. Denies: Thyroid Biopsy Neurological Surgical History: Reports: None. Denies: C-Spine, Discectomy, Laminectomy, Lumbar Spine, Sacral Spine, Spinal Fusion, Thoracic Spine, Vertebroplasty Musculoskeletal Surgical History: Reports: Other (See Below). Denies: Arthroscopic Knee, Arthroscopic Procedure, Carpal Tunnel, Ganglion Cyst, Joint Replacement, ORIF Other Musculoskeletal Surgeries/Procedures:: Open right knee anterior cruciate ligament repair in 2009 Oncologic Surgical History: Reports: None Dermatological Surgical History: Reports: None - Past Imaging History Past Imaging History: Reports: CAT Scan (CT of the head on 06/28/2017. CT scan of the abdomen and pelvis on and 12/21/2013. CT of the abdomen and pelvis with stone protocol on 10/06/2014. CT of the chest on 07/01/2014.), MRI (Right knee in 2009.), Xray. Denies: Cardiac Echo, Stress Testing Social & Family History - Family History HEENT: Reports: None. Denies: Glaucoma, Macular Degeneration, Retinal Detachment Cardiac: Reports: Bypass, CAD, Other (See Below). Denies: Afib, Aneurysm, Arrhythmia, Blood Clots/VTE/DVT, Heart Failure, High Cholesterol, Hypertension, NV, Pacemaker, PVD/COD Other Cardiac Family History: Paternal grandfather with CABG x3 in his 70s however no history of NV. Respiratory: Reports: Sleep Apnea, Other (See Below). Denies: Asthma, COPD, PE, Pneumothorax Other Respiratory Family Hisory: Brother with sleep apnea. GI: Reports: Colon Polyps, Other (See Below). Denies: Celiac Disease, Chol elithiasis, GERD, GI bleed, Inflammatory Bowel Disease, Irritable Bowel Syndrome, PUD Other GI Family History: Father with fatal colon cancer as below. : Reports: None. Denies: Renal Calculus, Renal Disease/Insufficiency OBGYN: Reports: None. Denies: Endometriosis, Recurrent Spontaneous Musculoskeletal: Reports: None. Denies: Arthritis, Gout, Osteoarthritis, RA, SLE Neurological: Reports: None. Denies: Alzheimers Disease, Cerebral Aneurysms, CVA, Dementia, Migraines, MS, Parkinson's, Seizure, TIA Psychiatric: Reports: None. Denies: Abuse, Victim of, ADD, Anxiety, Depression, Psych Hospitalization(s), PTSD, Suicide Attempt Endocrine/Metabolic: Reports: None. Denies: Diabetes, Type I, Diabetes, type II, Diabetes Mellitus, Type 3c, Hypothyroidism, IDDM Hematologic: Reports: None. Denies: Anemia, SLE Immunologic: Reports: None. Denies: AIDS, HIV, SLE Dermatologic: Reports: None. Denies: Eczema, Psoriasis Oncologic: Reports: Colon, Pancreatic, Other (See Below) Other Oncologic Family History: Father with fatal colon cancer at age 64. Paternal grandmother with fatal pancreatic cancer in her 70s. - Tobacco Use Tobacco Use Status *Q: Current Every Day Tobacco User Tobacco Use Within Last Twelve Months: Cigarettes Years of Tobacco use: 25 Packs/Tins Daily: 0.5 Packs/Tins Daily Comment: Started smoking at age 15 with maximum use of 1.5 packs/day. Used Tobacco, but Quit: No Smoking Cessation Information Provided To Patient: Yes Second Hand Smoke Exposure: No Second Hand Smoke Education Provided: No - Caffeine Use Caffeine Use: Reports: Soda (Twelve high-calorie sodas per day). Denies: Coffee, Energy Drinks, Tea - Alcohol Use Alcohol Use History: Yes Days Per Week of Alcohol Use: 0 Number of Drinks Per Day: 12 Number of Drinks Per Day Comment: No previous DWIs, problems with alcohol abuse, etc. however binge drinking with whiskey shots every 2-3 months. Total Drinks Per Week: 0 Alcohol Use in Last Twelve Months: Yes Alcohol Use Frequency: Binges - Recreational Drug Use Recreational Drug Use: No Drug Use in Last 12 Months: No Recreational Drug Type: Denies: Amphetamines (Speed), Cocaine, Heroin, LSD (Acid), Marijuana/Hashish, Methamphetamine, Morphine, Oxycodone - Living Situation & Occupation Living situation: Reports: (2012, 3 stepchildren), with Family () Occupation: Disabled (Secondary to left ankle/foot fractures in 2007 as above.) ED ROS GENERAL - Review of Systems Review Of Systems: Comprehensive ROS is negative, except as noted in HPI. ED EXAM, GENERAL - Physical Exam Exam: See Below Exam Limited By: No Limitations General Appearance: Alert, WD/WN, No Apparent Distress, Anxious (Moderate) Head: Atraumatic, Normocephalic Neck: Normal Inspection, Supple, Non-Tender, Full Range of Motion. No: Lymphadenopathy (L), Lymphadenopathy (R), Thyromegaly Respiratory/Chest: No Respiratory Distress, Lungs Clear, Normal Breath Sounds, No Accessory Muscle Use, Chest Non-Tender. No: Pleural Rub, Retractions Cardiovascular: Normal Peripheral Pulses, Regular Rate, Rhythm, No Edema, No Gallop, No JVD, No Murmur, No Rub. No: Gallop/S3, Gallop/S4, Friction Rub Peripheral Pulses: 2+: Radial (L), Radial (R), Dorsalis Pedis (L), Dorsalis Pedis (R) GI/Abdominal: Normal Bowel Sounds, Soft, Non-Tender, No Organomegaly, No Distention, No Abnormal Bruit, No Mass, Other (Obese). No: Guarding (Male) Exam: Deferred Rectal (Males) Exam: Deferred Back Exam: Normal Inspection, Full Range of Motion. No: CVA Tenderness (L), CVA Tenderness (R), Muscle Spasm Extremities: Normal Range of Motion, No Pedal Edema, Normal Capillary Refill, Leg Pain (Nonspecific minimal palpation pain superior to the left hip with good range of motion and no evidence of instability, crepitation, dislocation, etc. No local warming, no rash, etc. ). No: Saba's Sign Neurological: Alert, Oriented, CN II-XII Intact, Normal Cognition, Normal Gait, No Motor/Sensory Deficits Psychiatric: Anxious (Moderate), Depressed Mood (Mild to moderate with adequate eye contact) Skin Exam: Warm, Dry, Intact, Normal Color, No Rash, Tattoo(s). No: Diaphoretic Lymphatic: No Adenopathy Course - Vital Signs Last Recorded V/S: Last Vital Signs Temp 36.8 C 10/06/20 03:43 Pulse 74 10/06/20 03:43 Resp 16 10/06/20 03:43 BP 135/85 10/06/20 03:43 Pulse Ox 96 10/06/20 03:43 Vital Signs - 24 hr 10/06/20 03:43 Temperature [ 36.8 C Temporal] Pulse, 74 Peripheral [ Left Pulse Oximetry] Respiratory 16 Rate Blood Pressure 135/85 [Left Upper Arm ] O2 Sat by Pulse 96 Oximetry - Orders/Labs/Meds Orders: Active Orders 24 hr Category Date Time Status Hip Min 2V or 3V w Pelvis Lt [CR] Stat Exams 10/06/20 04:15 Ordered Obtain Past Medical Record [OM.PC] Routine Oth 10/06/20 04:08 Active Labs: None Meds: None - Radiology Interpretation Free Text/Narrative:: X-rays of the left hip, 2 views, with additional 1 view of the pelvis shows mild coxarthrosis bilaterally with no evidence of fracture, dislocation, etc. Departure - Departure Time of Disposition: 04:50 Disposition: Home, Self-Care 01 Condition: Good Clinical Impression: Left hip pain, Tobacco abuse counseling, Osteoarthritis, Chronic obstructive pulmonary disease, Mixed anxiety and depressive disorder - Discharge Information *PRESCRIPTION DRUG MONITORING PROGRAM REVIEWED*: Not Applicable *COPY OF PRESCRIPTION DRUG MONITORING REPORT IN PATIENT SEGUN: Not Applicable Instructions: Steps to Quit Smoking, [id number], Health Risks of Smoking, Arthritis, [id number] Referrals: PCP,None [Primary Care Provider] - Forms: ED Department Discharge Additional Instructions: 1. Follow up with your regular provider in 10-14 days as needed, if symptoms persist. Bring these discharge instructions with you to that visit.. 2. OTC ibuprofen, 23 tabs by mouth every 6 hours as needed with discretion 3. BenGay or equivalent, heating pad, and/or ice packs as directed. 4. Stop all tobacco use TRI as directed/per provided information and consider contacting Quit LIne, etc.. 5. Immediately after this visit verify that your cellular telephone's voicemail has been activated and is empty. Also verify that your home telephone's answering machine is operating properly and has space to receive messages. Note that it is sometimes necessary for us to be able to contact you at a later date to discuss your medical care. 6. Please remember that we are ALWAYS here for you and want to answer any questions you may have. Feel free to call the hospital any time and we call you back TRI. 7. Decrease caffeine intake with change to diet soda secondary to your attempt at weight loss, etc. as discussed. Sepsis Event Note (ED) - Evaluation Sepsis Screening Result: No Definite Risk - Focused Exam Vital Signs: Vital Signs Temp Pulse Resp BP Pulse Ox 10/06/20 03:43 36.8 C 74 16 135/85 96 - Problem List & Annotations (1) Left hip pain SNOMED Code(s): 47453367 Code(s): M25.552 - PAIN IN LEFT HIP Status: Acute Priority: High Current Visit: Yes Onset Date: ~10/03/20 Annotation/Comment:: Symptomatic relief as per discharge instructions. Activity restrictions were extensively discussed. (2) Osteoarthritis SNOMED Code(s): 867424502 Code(s): M19.90 - UNSPECIFIED OSTEOARTHRITIS, UNSPECIFIED SITE Status: Chronic Priority: Medium Current Visit: Yes Annotation/Comment:: Stable by patient history, including his chronic low back pain, etc. Note additional fibromyalgia -stable by patient history. He was cautioned to use ibuprofen rather than his current Toradol with these medications not to be used concurrently. Qualifiers: Osteoarthritis location: multiple joints Osteoarthritis type: primary Qualified Code(s): M89.49 - Other hypertrophic osteoarthropathy, multiple sites (3) Chronic obstructive pulmonary disease SNOMED Code(s): 46394148 Code(s): J44.9 - CHRONIC OBSTRUCTIVE PULMONARY DISEASE, UNSPECIFIED Status: Chronic Priority: Medium Current Visit: Yes Annotation/Comment:: COPD by chest x-ray with no current bronchitic type symptoms and no current medical therapy. Tobacco cessation was once again strongly encouraged as below. PFTs on an outpatient basis may be advisable. Qualifiers: COPD type: unspecified COPD Qualified Code(s): J44.9 - Chronic obstructive pulmonary disease, unspecified (4) Mixed anxiety and depressive disorder SNOMED Code(s): 624474602 Code(s): F41.8 - OTHER SPECIFIED ANXIETY DISORDERS Status: Chronic Priority: Medium Current Visit: Yes Annotation/Comment:: Continue to observe closely by his regular providers with moderate control based on today's exam. Patient may benefit from medical therapy, which would also be beneficial for his chronic pain, etc.. Emotional support was provided secondary to patient's father's recent from colon cancer at age 64. Colonoscopy at age 49 recommended. In addition, note occasional binge drinking, which was once again discouraged. Patient is likely using caffeinated soda for his ADHD, however he was encouraged to drink diet sodas rather than high-calorie sodas secondary to his obesity. (5) Tobacco abuse counseling SNOMED Code(s): 290057618, 649261667, 075205070 Code(s): Z71.6 - TOBACCO ABUSE COUNSELING Status: Chronic Priority: Medium Current Visit: Yes Annotation/Comment:: As above - Problem List Review Problem List Initiated/Reviewed/Updated: Yes - My Orders Last 24 Hours: My Active Orders 10/06/20 04:08 Obtain Past Medical Record [OM.PC] Routine 10/06/20 04:15 Hip Min 2V or 3V w Pelvis Lt [CR] Stat - Assessment/Plan Last 24 Hours: My Active Orders 10/06/20 04:08 Obtain Past Medical Record [OM.PC] Routine 10/06/20 04:15 Hip Min 2V or 3V w Pelvis Lt [CR] Stat Assessment:: As above Plan: As above. Extensive precautions were given to the patient, who is in agreement with the treatment plan. See Patient Instructions for further treatment and plan.
== END 2020-10-06 04:50 | disposition home or self-care (01) ==
LOC: LL.ED 03:41
DX: M25.552 Pain in left hip (principal); M19.90 Unspecified osteoarthritis, unspecified site; J44.9 Chronic obstructive pulmonary disease, unspecified; F41.8 Other specified anxiety disorders; I25.2 Old myocardial infarction; E66.9 Obesity, unspecified; Z68.39 Body mass index [BMI] 39.0-39.9, adult; Z71.6 Tobacco abuse counseling; Z72.0 Tobacco use; Z88.6 Allergy status to analgesic agent; Z88.1 Allergy status to other antibiotic agents; Z88.8 Allergy status to other drugs, medicaments and biological substances
CPT/HCPCS: 99283

== ENCOUNTER 2020-10-14 17:25 | Emergency (ER) | payer OTHER ==
[2020-10-14] MEDS ORDERED: LORazepam 2 MG/ML SDV IM ONE (17:39)
--- NOTE | 2020-10-14 17:42 | EDM.PDOC ---
ED HPI GENERAL MEDICAL PROBLEM - General Chief Complaint: General Stated Complaint: anxiety Time Seen by Provider: 10/14/20 17:33 Source of Information: Reports: Patient History Limitations: Reports: No Limitations - History of Present Illness INITIAL COMMENTS - FREE TEXT/NARRATIVE: Pt with increased anxiety today [place] and began having increased anxiety Has hx/o anxiety in past See med list Onset: Today, Gradual Duration: Hour(s):, Getting Worse Location: Reports: Generalized - Related Data Allergies Allergy/AdvReac Type Severity Reaction Status Date / Time acetaminophen [From Tylenol] Allergy Nausea and Verified 10/14/20 17:37 Vomiting ciprofloxacin Allergy Edema Verified 10/14/20 17:37 fluoxetine [From Prozac] AdvReac Other Verified 10/14/20 17:37 Home Meds: Home Meds busPIRone HCl [Buspirone HCl] 15 mg PO TID 10/06/20 [History] ARIPiprazole [Abilify] 2 mg PO DAILY 10/14/20 [History] Past Medical History HEENT History: Reports: Impaired Vision. Denies: Allergic Rhinitis, Cataract, Glaucoma, Hard of Hearing, Macular Degeneration, Otitis Media, Retinal Detachment Other HEENT History: Patient wears glasses. Complete upper dentures. Cardiovascular History: Reports: Arrhythmia, OK, Other (See Below). Denies: Afib, Aneurysm, Blood Clots/VTE/DVT, CAD, Cardiomyopathy, Heart Murmur, High Cholesterol, Hypertension, PVD, Syncope Other Cardiovascular History: PVCs. Borderline first-degree A-V block. Intermittent elevated blood pressures possibly secondary to anxiety. Respiratory History: Reports: COPD, Pulmonary Fibrosis, Other (See Below). Denies: Asthma, Bronchitis, Recurrent, Intubation, Previous, PE, Pneumothorax, Sleep Apnea, TB Other Respiratory History: COPD and pulmonary fibrosis by chest x-ray with no medical therapy Gastrointestinal History: Reports: Colon Polyp, Diverticulosis, Gastritis, Other (See Below). Denies: Bowel Obstruction, Celiac Disease, Cholelithiasis, Chronic Constipation, Chronic Diarrhea, GERD, GI Bleed, Hepatitis, Helicobacter Pylori, Inflammatory Bowel Disease, Irritable Bowel Syndrome, Jaundice, Pancreatitis, PUD Other Gastrointestinal History: Small left inguinal hernia by CT scan. Sigmoid diverticulosis with history of recurrent diverticulitis with last episode on 03/14/2015. Nonsymptomatic cholelithiasis versus gallbladder polyp by CT scan. Genitourinary History: Reports: Pyelonephritis, Renal Calculus, Other (See Below). Denies: Acute Renal Failure, BPH, Chronic Renal Insuffiency, Retention, Urinary, STD, Urinary Incontinence, UTI, Recurrent Other Genitourinary History: Possible previous left-sided urolithiasis however not evident from previous CT scans. Musculoskeletal History: Reports: Arthritis, Back Pain, Chronic, Fracture, Fibromyalgia, Neck Pain, Chronic, Osteoarthritis, Other (See Below). Denies: Gout, RA, SLE Other Musculoskeletal History: Left ankle and foot fractures resulting in disability from a Workmen's Compensation injury in 2007. Right distal phalangeal fracture of digit #4 of the hand on 06/09/2007. Mild bilateral elbow fractures as a child. Chronic nonspecific rib pain. Neurological History: Reports: Headaches, Chronic, Vertigo. Denies: Cerebral Aneurysms, Concussion, CVA, Head Trauma, Migraines, MS, Parkinson's, Seizure, TIA Psychiatric History: Reports: ADD, ADHD, Addiction, Anxiety, Bipolar, Depression, Other (See Below). Denies: Abuse, Victim of, Alzheimers Disease, Dementia, Psych Hospitalization(s), PTSD, Suicide Attempt, Suicidal Ideation Other Psychiatric History: History of chronic narcotic and Ultram use secondary to chronic pain. Intermittent binge drinking. Endocrine/Metabolic History: Reports: Obesity/BMI 30+. Denies: Diabetes, Type I, Diabetes, Type II, Diabetes Mellitus, Type 3c, Hypothyroidism, IDDM, Osteopenia, Osteoporosis Hematologic History: Reports: Other (See Below). Denies: Anemia, Blood Transfusion(s) Other Hematologic History: Mild intermittent thrombocytopenia. Immunologic History: Reports: None. Denies: AIDS, HIV, SLE Oncologic (Cancer) History: Reports: None. Denies: Basal Cell Carcinoma, Colon, Hodgkin's Lymphoma, Leukemia, Lymphoma, Prostate, Squamous Cell Carcinoma Dermatologic History: Reports: None. Denies: Eczema, Psoriasis - Infectious Disease History Infectious Disease History: Reports: Chicken Pox (X2). Denies: C-Difficile, Measles, Meningitis, Mononucleosis, MRSA, Mumps, Novel Coronavirus, Pertussis (Whooping Cough), Rheumatic Fever, Rubella, Scarlet Fever, Shingles, TB, VRE - Past Surgical History HEENT Surgical History: Reports: Adenoidectomy, Oral Surgery, Tonsillectomy, Other (See Below). Denies: Cataract Surgery, Eye Surgery, Laser Surgery, LASIK, Myringotomy w Tube(s) Other HEENT Surgeries/Procedures: Tonsillectomy and adenoidectomy at age 7. Multiple teeth extractions with complete upper dentures. Cardiovascular Surgical History: Reports: None. Denies: Varicose, Vascular Surgery Respiratory Surgical History: Reports: None. Denies: Thoracentesis GI Surgical History: Reports: Colonoscopy, Other (See Below). Denies: Appendectomy, Cholecystectomy, EGD, Hernia, Abdominal, Hernia, Inguinal, Hernia Repair/Other, Polypectomy Other GI Surgeries/Procedures: Colonoscopy on 07/28/2014. Male Surgical History: Reports: Circumcision, Other (See Below). Denies: TURP-Transurethral Resection of Prostate, Vasectomy Other Male Surgeries/Procedures: Circumcision as an . Endocrine Surgical History: Reports: None. Denies: Thyroid Biopsy Neurological Surgical History: Reports: None. Denies: C-Spine, Discectomy, Laminectomy, Lumbar Spine, Sacral Spine, Spinal Fusion, Thoracic Spine, Vertebroplasty Musculoskeletal Surgical History: Reports: Other (See Below). Denies: Arthroscopic Knee, Arthroscopic Procedure, Carpal Tunnel, Ganglion Cyst, Joint Replacement, ORIF - Past Imaging History Past Imaging History: Reports: CAT Scan (CT of the head on 06/28/2017. CT scan of the abdomen and pelvis on and 12/21/2013. CT of the abdomen and pelvis with stone protocol on 10/06/2014. CT of the chest on 07/01/2014.), MRI (Right knee in 2009.), Xray. Denies: Cardiac Echo, Stress Testing Social & Family History - Family History HEENT: Reports: None. Denies: Glaucoma, Macular Degeneration, Retinal Detachment Cardiac: Reports: Bypass, CAD, Other (See Below). Denies: Afib, Aneurysm, Arrhythmia, Blood Clots/VTE/DVT, Heart Failure, High Cholesterol, Hypertension, OK, Pacemaker, PVD/COD Other Cardiac Family History: Paternal grandfather with CABG x3 in his 70s however no history of OK. Respiratory: Reports: Sleep Apnea, Other (See Below). Denies: Asthma, COPD, PE, Pneumothorax Other Respiratory Family Hisory: Brother with sleep apnea. GI: Reports: Colon Polyps, Other (See Below). Denies: Celiac Disease, Cholelithiasis, GERD, GI bleed, Inflammatory Bowel Disease, Irritable Bowel Syndrome, PUD Other GI Family History: Father with fatal colon cancer as below. : Reports: None. Denies: Renal Calculus, Renal Disease/Insufficiency OBGYN: Reports: None. Denies: Endometriosis, Recurrent Spontaneous Musculoskeletal: Reports: None. Denies: Arthritis, Gout, Osteoarthritis, RA, SLE Neurological: Reports: None. Denies: Alzheimers Disease, Cerebral Aneurysms, CVA, Dementia, Migraines, MS, Parkinson's, Seizure, TIA Psychiatric: Reports: None. Denies: Abuse, Victim of, ADD, Anxiety, Depression, Psych Hospitalization(s), PTSD, Suicide Attempt Endocrine/Metabolic: Reports: None. Denies: Diabetes, Type I, Diabetes, type II, Diabetes Mellitus, Type 3c, Hypothyroidism, IDDM Hematologic: Reports: None. Denies: Anemia, SLE Immunologic: Reports: None. Denies: AIDS, HIV, SLE Dermatologic: Reports: None. Denies: Eczema, Psoriasis Oncologic: Reports: Colon, Pancreatic, Other (See Below) Other Oncologic Family History: Father with fatal colon cancer at age 64. Paternal grandmother with fatal pancreatic cancer in her 70s. - Caffeine Use Caffeine Use: Reports: Soda (Twelve high-calorie sodas per day). Denies: Coffee, Energy Drinks, Tea Other Caffeine Use: [employer] - Living Situation & Occupation Living situation: Reports: (2012, 3 stepchildren), with Family () Occupation: Disabled (Secondary to left ankle/foot fractures in 2007 as above.) ED ROS GENERAL - Review of Systems Review Of Systems: See Below Constitutional: Reports: No Symptoms HEENT: Reports: No Symptoms Respiratory: Reports: No Symptoms Cardiovascular: Reports: No Symptoms GI/Abdominal: Reports: No Symptoms Musculoskeletal: Reports: No Symptoms Neurological: Reports: No Symptoms Psychiatric: Reports: Agitation, Anxiety ED EXAM, GENERAL - Physical Exam Exam: See Below Exam Limited By: No Limitations General Appearance: Alert, WD/WN, Mild Distress Neck: Supple Respiratory/Chest: Lungs Clear Cardiovascular: Regular Rate, Rhythm Extremities: Normal Inspection Neurological: Alert, Oriented, Normal Cognition, Normal Gait, No Motor/Sensory Deficits Psychiatric: Anxious Course - Orders/Labs/Meds Orders: Active Orders 24 hr Category Date Time Status LORazepam [Ativan] Med 10/14/20 17:39 Once 1 mg IM ONETIME ONE - Re-Assessments/Exams Free Text/Narrative Re-Assessment/Exam: 10/14/20 17:41 Pt given Ativan 1 mg IM in ER Departure - Departure Time of Disposition: 18:00 Disposition: Home, Self-Care 01 Clinical Impression: Anxiety - Discharge Information *PRESCRIPTION DRUG MONITORING PROGRAM REVIEWED*: Not Applicable *COPY OF PRESCRIPTION DRUG MONITORING REPORT IN PATIENT SEGUN: Not Applicable Instructions: Managing Anxiety, Adult Referrals: Nat Helm PA-C [Primary Care Provider] - Additional Instructions: Follow up in clinic - My Orders Last 24 Hours: My Active Orders 10/14/20 17:39 LORazepam [Ativan] 1 mg IM ONETIME ONE - Assessment/Plan Last 24 Hours: My Active Orders 10/14/20 17:39 LORazepam [Ativan] 1 mg IM ONETIME ONE
[2020-10-14 19:28] VITALS: BP 156/91; PULSE 95
== END 2020-10-14 18:15 | disposition home or self-care (01) ==
LOC: LL.ED 17:25
DX: F41.9 Anxiety disorder, unspecified (principal); I25.2 Old myocardial infarction; J44.9 Chronic obstructive pulmonary disease, unspecified; E66.9 Obesity, unspecified; Z88.6 Allergy status to analgesic agent; Z88.1 Allergy status to other antibiotic agents; Z88.8 Allergy status to other drugs, medicaments and biological substances
CPT/HCPCS: 96372; 99283; J2060

== ENCOUNTER 2021-03-11 00:11 | Emergency (ER) | payer OTHER ==
[2021-03-11] MEDS ORDERED: Sodium Chloride 0.9% 10 ML Syringe FLUSH PRN (00:21)
[2021-03-11 00:22] VITALS: BP 140/84; PULSE 91
[2021-03-11] MEDS ORDERED: Lactated Ringers 1,000 ML IV ONE (00:34)
[2021-03-11] MEDS ORDERED: diphenhydrAMINE 50 MG/ML SDV IVPUSH ONE (00:34)
[2021-03-11] MEDS ORDERED: HYDROmorphone 0.5 MG/0.5 ML Syringe IV ONE (00:34)
[2021-03-11] MEDS ORDERED: metroNIDAZOLE/Normal Saline 500 MG in Premix Bag 1 BAG IV ONE (00:34)
[2021-03-11] MEDS ORDERED: cefTRIAXone 2 GM Vial IVPUSH STA (00:37)
--- NOTE | 2021-03-11 00:39 | EDM.PDOC ---
ED HPI GENERAL MEDICAL PROBLEM - General Chief Complaint: Abdominal Pain Stated Complaint: abdominal pain Time Seen by Provider: 03/11/21 00:15 Source of Information: Reports: Patient History Limitations: Reports: No Limitations - History of Present Illness INITIAL COMMENTS - FREE TEXT/NARRATIVE: Patient comes emergency department today from home with complaints of continued abdominal pain related to diverticulitis. 4 days ago the patient developed very low mid abdominal suprapubic abdominal pain. This continued over the next couple of days. It was getting slowly worse and more waves of pain. He was seen in the clinic and had a CT scan and was told he had diverticulitis. There was some type of confusion for antibiotic therapy and none was ever started. He continues to have this low mid abdominal suprapubic pain. He has waves of pain that get much worse but does improve back to previous pain level prior to the CT scan. He has had some nausea without vomiting. No fever no chills. No chest pain no shortness of breath or difficulty breathing. No other pain in his abdomen. He is having small frequent loose bowel movements without any blood in them. No mucus. No hematuria dysuria or urinary frequency. No weakness dizziness lightheadedness or syncope. He has been taking some of his doxycycline that he has had left over from previous therapies. Lower Abdomen Pain Score (Numeric/FACES): 10 - Related Data Allergies Allergy/AdvReac Type Severity Reaction Status Date / Time acetaminophen [From Tylenol] Allergy Nausea and Verified 03/11/21 00:31 Vomiting ciprofloxacin Allergy Edema Verified 03/11/21 00:31 fluoxetine [From Prozac] AdvReac Other Verified 03/11/21 00:31 Home Meds: Home Meds Doxycycline [Vibra-Tabs] 100 mg PO BID 03/11/21 [History] LORazepam [Ativan] 0.5 mg PO BID 03/11/21 [History] Sulfamethoxazole/Trimethoprim [Bactrim Ds Tablet] 1 each PO BID #18 tablet 03/11/21 [Rx] metroNIDAZOLE [Flagyl] 500 mg PO Q8H #27 tab 03/11/21 [Rx] traMADol [Ultram] 50 mg PO DAILY 03/11/21 [History] Past Medical History HEENT History: Reports: Impaired Vision. Denies: Allergic Rhinitis, Cataract, Glaucoma, Hard of Hearing, Macular Degeneration, Otitis Media, Retinal Detachment Other HEENT History: Patient wears glasses. Complete upper dentures. Cardiovascular History: Reports: Arrhythmia, UT, Other (See Below). Denies: Afib, Aneurysm, Blood Clots/VTE/DVT, CAD, Cardiomyopathy, Heart Murmur, High Cholesterol, Hypertension, PVD, Syncope Other Cardiovascular History: PVCs. Borderline first-degree A-V block. Intermittent elevated blood pressures possibly secondary to anxiety. Respiratory History: Reports: COPD, Pulmonary Fibrosis, Other (See Below). Denies: Asthma, Bronchitis, Recurrent, Intubation, Previous, PE, Pneumothorax, Sleep Apnea, TB Other Respiratory History: COPD and pulmonary fibrosis by chest x-ray with no medical therapy Gastrointestinal History: Reports: Colon Polyp, Diverticulosis, Gastritis, Other (See Below). Denies: Bowel Obstruction, Celiac Disease, Cholelithiasis, Chronic Constipation, Chronic Diarrhea, GERD, GI Bleed, Hepatitis, Helicobacter Pylori, Inflammatory Bowel Disease, Irritable Bowel Syndrome, Jaundice, Pancreatitis, PUD Other Gastrointestinal History: Small left inguinal hernia by CT scan. Sigmoid diverticulosis with history of recurrent diverticulitis with last episode on 03/14/2015. Nonsymptomatic cholelithiasis versus gallbladder polyp by CT scan. Genitourinary History: Reports: Pyelonephritis, Renal Calculus, Other (See Below). Denies: Acute Renal Failure, BPH, Chronic Renal Insuffiency, Retention, Urinary, STD, Urinary Incontinence, UTI, Recurrent Other Genitourinary History: Possible previous left-sided urolithiasis however not evident from previous CT scans. Musculoskeletal History: Reports: Arthritis, Back Pain, Chronic, Fracture, Fibromyalgia, Neck Pain, Chronic, Osteoarthritis, Other (See Below). Denies: Gout, RA, SLE Other Musculoskeletal History: Left ankle and foot fractures resulting in disability from a Workmen's Compensation injury in 2007. Right distal phalangeal fracture of digit #4 of the hand on 06/09/2007. Mild bilateral elbow fractures as a child. Chronic nonspecific rib pain. Neurological History: Reports: Headaches, Chronic, Vertigo. Denies: Cerebral Aneurysms, Concussion, CVA, Head Trauma, Migraines, MS, Parkinson's, Seizure, TIA Psychiatric History: Reports: ADD, ADHD, Addiction, Anxiety, Bipolar, Depression, Other (See Below). Denies: Abuse, Victim of, Alzheimers Disease, Dementia, Psych Hospitalization(s), PTSD, Suicide Attempt, Suicidal Ideation Other Psychiatric History: History of chronic narcotic and Ultram use secondary to chronic pain. Intermittent binge drinking. Endocrine/Metabolic History: Reports: Obesity/BMI 30+. Denies: Diabetes, Type I, Diabetes, Type II, Diabetes Mellitus, Type 3c, Hypothyroidism, IDDM, Osteopenia, Osteoporosis Hematologic History: Reports: Other (See Below). Denies: Anemia, Blood Transfusion(s) Other Hematologic History: Mild intermittent thrombocytopenia. Immunologic History: Reports: None. Denies: AIDS, HIV, SLE Oncologic (Cancer) History: Reports: None. Denies: Basal Cell Carcinoma, Colon, Hodgkin's Lymphoma, Leukemia, Lymphoma, Prostate, Squamous Cell Carcinoma Dermatologic History: Reports: None. Denies: Eczema, Psoriasis - Infectious Disease History Infectious Disease History: Reports: Chicken Pox (X2). Denies: C-Difficile, Measles, Meningitis, Mononucleosis, MRSA, Mumps, Novel Coronavirus, Pertussis (Whooping Cough), Rheumatic Fever, Rubella, Scarlet Fever, Shingles, TB, VRE - Past Surgical History HEENT Surgical History: Reports: Adenoidectomy, Oral Surgery, Tonsillectomy, Other (See Below). Denies: Cataract Surgery, Eye Surgery, Laser Surgery, LASIK, Myringotomy w Tube(s) Other HEENT Surgeries/Procedures: Tonsillectomy and adenoidectomy at age 7. Multiple teeth extractions with complete upper dentures. Cardiovascular Surgical History: Reports: None. Denies: Varicose, Vascular Surgery Respiratory Surgical History: Reports: None. Denies: Thoracentesis GI Surgical History: Reports: Colonoscopy, Other (See Below). Denies: Appendectomy, Cholecystectomy, EGD, Hernia, Abdominal, Hernia, Inguinal, Hernia Repair/Other, Polypectomy Other GI Surgeries/Procedures: Colonoscopy on 07/28/2014. Male Surgical History: Reports: Circumcision, Other (See Below). Denies: TURP-Transurethral Resection of Prostate, Vasectomy Other Male Surgeries/Procedures: Circumcision as an infant. Endocrine Surgical History: Reports: None. Denies: Thyroid Biopsy Neurological Surgical History: Reports: None. Denies: C-Spine, Discectomy, Laminectomy, Lumbar Spine, Sacral Spine, Spinal Fusion, Thoracic Spine, Vertebroplasty Musculoskeletal Surgical History: Reports: Other (See Below). Denies: Arthroscopic Knee, Arthroscopic Procedure, Carpal Tunnel, Ganglion Cyst, Joint Replacement, ORIF - Past Imaging History Past Imaging History: Reports: CAT Scan (CT of the head on 06/28/2017. CT scan of the abdomen and pelvis on and 12/21/2013. CT of the abdomen and pelvis with stone protocol on 10/06/2014. CT of the chest on 07/01/2014.), MRI (Right knee in 2009.), Xray. Denies: Cardiac Echo, Stress Testing Social & Family History - Family History HEENT: Reports: None. Denies: Glaucoma, Macular Degeneration, Retinal Detachment Cardiac: Reports: Bypass, CAD, Other (See Below). Denies: Afib, Aneurysm, Arrhythmia, Blood Clots/VTE/DVT, Heart Failure, High Cholesterol, Hypertension, UT, Pacemaker, PVD/COD Other Cardiac Family History: Paternal grandfather with CABG x3 in his 70s however no history of UT. Respiratory: Reports: Sleep Apnea, Other (See Below). Denies: Asthma, COPD, PE, Pneumothorax Other Respiratory Family Hisory: Brother with sleep apnea. GI: Reports: Colon Polyps, Other (See Below). Denies: Celiac Disease, Cholelithiasis, GERD, GI bleed, Inflammatory Bowel Disease, Irritable Bowel Syndrome, PUD Other GI Family History: Father with fatal colon cancer as below. : Reports: None. Denies: Renal Calculus, Renal Disease/Insufficiency OBGYN: Reports: None. Denies: Endometriosis, Recurrent Spontaneous Musculoskeletal: Reports: None. Denies: Arthritis, Gout, Osteoarthritis, RA, SLE Neurological: Reports: None. Denies: Alzheimers Disease, Cerebral Aneurysms, CVA, Dementia, Migraines, MS, Parkinson's, Seizure, TIA Psychiatric: Reports: None. Denies: Abuse, Victim of, ADD, Anxiety, Depression, Psych Hospitalization(s), PTSD, Suicide Attempt Endocrine/Metabolic: Reports: None. Denies: Diabetes, Type I, Diabetes, type II, Diabetes Mellitus, Type 3c, Hypothyroidism, IDDM Hematologic: Reports: None. Denies: Anemia, SLE Immunologic: Reports: None. Denies: AIDS, HIV, SLE Dermatologic: Reports: None. Denies: Eczema, Psoriasis Oncologic: Reports: Colon, Pancreatic, Other (See Below) Other Oncologic Family History: Father with fatal colon cancer at age 64. Paternal grandmother with fatal pancreatic cancer in her 70s. - Caffeine Use Caffeine Use: Reports: Soda Other Caffeine Use: [place] - Living Situation & Occupation Living situation: Reports: (2013, 3 stepchildren), with Family () Occupation: Disabled (Secondary to left ankle/foot fractures in 2007 as above.) ED ROS GENERAL - Review of Systems Review Of Systems: Comprehensive ROS is negative, except as noted in HPI. ED EXAM, GI/ABD - Physical Exam Exam: See Below Exam Limited By: No Limitations General Appearance: Alert, WD/WN, No Apparent Distress Eyes: Bilateral: EOMI Ears: Normal External Exam Nose: Normal Inspection Throat/Mouth: Normal Inspection Head: Atraumatic, Normocephalic Neck: Normal Inspection, Supple, Non-Tender Respiratory/Chest: No Respiratory Distress, Lungs Clear, Normal Breath Sounds, No Accessory Muscle Use, Chest Non-Tender Cardiovascular: Normal Peripheral Pulses, Regular Rate, Rhythm GI/Abdominal Exam: Normal Bowel Sounds (Although decreased. ), Soft, Tender (In the suprapubic region without guarding rebound or rigidity. ). No: Guarding, Rigid, Rebound (Male) Exam: Deferred Rectal (Males) Exam: Deferred Back Exam: Normal Inspection, Full Range of Motion Extremities: Normal Inspection, Normal Range of Motion, Non-Tender, No Pedal Edema, Normal Capillary Refill Neurological: Alert, Oriented, Normal Cognition, Normal Gait, No Motor/Sensory Deficits Psychiatric: Normal Affect, Normal Mood Skin Exam: Warm, Dry, Intact, Normal Color, No Rash Lymphatic: No Adenopathy Course - Vital Signs Last Recorded V/S: Last Vital Signs Temp 98.3 F 03/11/21 00:17 Pulse 91 03/11/21 00:17 Resp 16 03/11/21 00:17 BP 140/84 03/11/21 00:17 Pulse Ox 96 03/11/21 00:17 - Orders/Labs/Meds Orders: Active Orders 24 hr Category Date Time Status CULTURE BLOOD [BC] Stat Lab 03/11/21 00:25 Received CULTURE BLOOD [BC] Stat Lab 03/11/21 00:44 Received PROCALCITONIN [REF] Stat Lab 03/11/21 00:25 Received Blood Culture x2 Reflex Set [OM.PC] Stat Oth 03/11/21 00:22 Ordered Peripheral IV Insertion Adult [OM.PC] Stat Oth 03/11/21 00:21 Ordered Labs: Laboratory Tests 03/11/21 03/11/21 03/11/21 Range/Units 00:25 00:25 00:25 WBC 12.0 H (4.0-10.2) K/uL RBC 5.10 (4.33-5.41) M/uL Hgb 15.9 (13.1-16.8) g/dL Hct 47.9 (39.0-49.0) % MCV 93.9 (84.0-98.0) fL MCH 31.2 (28.2-33.3) pg MCHC 33.2 (31.7-36.0) g/dL RDW 14.0 (11.2-14.1) % Plt Count 135 L (150-350) K/uL Neut % (Auto) 68.8 (45.0-80.0) % Lymph % (Auto) 23.2 (10.0-50.0) % [place] % (Auto) 6.6 (2.0-14.0) % Eos % (Auto) 1.2 (0.0-5.0) % Baso % (Auto) 0.2 (0.0-2.0) % Neut # (Auto) 8.26 H (1.40-7.00) K/uL Lymph # (Auto) 2.79 (0.50-3.50) K/uL [place] # (Auto) 0.79 (0.00-1.00) K/uL Eos # (Auto) 0.15 (0.00-0.50) K/uL Baso # (Auto) 0.03 (0.00-0.20) K/uL Sodium 141 (136-145) mmol/L Potassium 3.5 (3.5-5.1) mmol/L Chloride 106 (98-107) mmol/L Carbon Dioxide 24.0 (21.0-32.0) mmol/L BUN 13 (7-18) mg/dL Creatinine 0.86 (0.51-1.17) mg/dL Est Cr Clr Drug Dosing TNP Estimated GFR (MDRD) > 60 mL/min Glucose 132 H (70-99) mg/dL Lactic Acid 1.3 (0.4-2.0) mmol/L Calcium 8.6 (8.5-10.1) mg/dL Total Bilirubin 0.4 (0.2-1.0) mg/dL AST 15 (15-37) U/L ALT 25 (12-78) U/L Alkaline Phosphatase 74 (46-116) IU/L C-Reactive Protein 5.6 H (<=0.9) mg/dL Total Protein 6.9 (6.4-8.2) g/dL Albumin 3.6 (3.4-5.0) g/dL Lipase 79 (73-393) U/L Meds: Medications Discontinued Medications Generic Name Dose Route Start Last Admin Trade Name Freq PRN Reason Stop Dose Admin Hydrocodone Bitart/Acetaminophen 4 tab 03/11/21 01:32 03/11/21 02:24 Acetaminophen/Hydrocodone 325-10 Mg Tab PO 03/11/21 01:33 4 tab ONETIME ONE Administration Ceftriaxone Sodium 2 gm 03/11/21 00:37 03/11/21 00:56 Ceftriaxone 2 Gm Vial IVPUSH 03/11/21 00:38 2 gm NOW STA Administration Diphenhydramine HCl 25 mg 03/11/21 00:34 03/11/21 01:04 Diphenhydramine 50 Mg/Ml Sdv IVPUSH 03/11/21 00:35 25 mg ONETIME ONE Administration Hydromorphone HCl 0.5 mg 03/11/21 00:34 03/11/21 00:45 Hydromorphone 0.5 Mg/0.5 Ml Syringe IV 03/11/21 00:35 0.5 mg ONETIME ONE Administration Lactated Ringer's 1,000 mls @ 1,000 mls/hr 03/11/21 00:34 03/11/21 00:42 Ringers, Lactated IV 03/11/21 01:33 1,000 mls/hr .BOLUS ONE Administration Metronidazole 500 mg/ Premix 100 mls @ 100 mls/hr 03/11/21 00:34 03/11/21 01: 06 IV 03/11/21 01:33 100 mls/hr ONETIME ONE Administration Sodium Chloride 10 ml 03/11/21 00:21 03/11/21 00:49 Sodium Chloride 0.9% 10 Ml Syringe FLUSH 10 ml ASDIRECTED PRN Administration Keep Vein Open - Re-Assessments/Exams Free Text/Narrative Re-Assessment/Exam: 03/11/21 00:40 IV was established. Labs drawn to include blood cultures. Benadryl 25 mg IV push for nausea. Dilaudid 0.5 mg IV push for pain. 1 L LR wide open. As the patient is allergic to ciprofloxacin will use ceftriaxone 2 g IV push. Flagyl 500 mg IV piggyback. 03/11/21 00:45 Reviewing his laboratory evaluation from 03-09-21. CBC: WBC 12.8, hemoglobin 16.3 platelet count 142. His lipase was normal at 61 CRP is minimally elevated at 11 with an upper limit of 8 His comprehensive metabolic panel was absolutely normal. This was reviewed through [facility]. Urinalysis is well small amount of blood otherwise no nitrites or leukocytes. Reviewing his CT scans from 03-09-21 per radiology's finding compatible with diverticulitis involving the mid sigmoid colon. There is bowel wall thickening and stranding of the adjacent fat but no evidence of perforation or abscess formation. Other chronic findings unchanged from previous The patient felt quite a bit better after the above therapy. His pain is completely resolved. He has no nausea. Repeating his labs his white blood cell count is actually improved down to 12.0 it was 12.8 in the clinic. Rest of his laboratory evaluation is rather unremarkable. Lactic acid is normal. The patient had a CT scan in just over 24 hours ago that did not show any evidence of perforation abscess or complication of a diverticulitis. His clinical picture does not show worsening of his clinical status. I did offer to reCAT scan the patient at this time with the concerns of no prior therapy appropriate for diverticulitis although in the clinical setting I do not feel that he is going to be worse. He is comfortable with just aggressive antibiotic therapy and discharging home at this time. He feels quite a bit better. We will give him something for pain and treat him with Bactrim DS 1 tab p.o. twice daily for the next 12 days as well as Flagyl 500 mg p.o. 3 times daily for the next 12 days. If it anytime he has increasing pain fever nausea vomiting he is unable to keep his antibiotics down or worsening of his sequelae he needs to recheck in the emergency department immediately. He is comfortable with this plan and his questions were answered. Departure - Departure Time of Disposition: 01:33 Disposition: Home, Self-Care Clinical Impression: Diverticulitis large intestine Qualifiers: Diverticulitis bleeding: without bleeding Diverticulitis complication: unspecified complication status Qualified Code(s): K57.32 - Diverticulitis of large intestine without perforation or abscess without bleeding - Discharge Information Prescriptions: Sulfamethoxazole/Trimethoprim [Bactrim Ds Tablet] 1 each PO BID #18 tablet metroNIDAZOLE [Flagyl] 500 mg PO Q8H #27 tab Instructions: Diverticulitis, [id number], Antibiotic Medicine, Adult, [id number], Nausea and Vomiting, Adult, [id number], Pain Medicine Instructions, [id number] Referrals: Nat Helm PA-C [Primary Care Provider] - Forms: ED Department Discharge Additional Instructions: Make sure and keep well hydrated. Drink plenty of fluids especially electrolyte containing fluids like gatorade and or powerade. Bactrim DS, 1 tablet twice daily for a total of 12 days. Starter pack from the ED and RX sent to [facility]. Flagyl, 1 tablet three times a day for a total of 12 days. Starter pack from the ED and RX sent to [facility]. MAKE SURE AND TAKE ALL ANTIBIOTICS for the 12 days even if you are feeling better. Probiotics as well per discharge instruction sheet. Diet simple diet the next few days. Nothing fatty spicy rich. Stay away from dairy as well. Yogurt with live cultures such as Activia is perfect as well. Tylenol and or Ibuprofen as needed for pain. If pain not controlled with above. From the ED [place] 10/325 1/2-1 tablet every 6 hrs with food as needed for pain. Caution sedation. RX for [place] 5/325 1 tablet every 6 hrs with food as needed for pain. Caution sedation. #9 Ondansetron 1 tablet every 6 hrs as needed for nausea. Starter pack given from the ED. YOU MUST BE rechecked in the clinic on friday or friday. Return immediately to the ED if new or worsening symptoms, especially fever, unable to tolerated oral fluids food or antibiotics. Sepsis Event Note (ED) - Evaluation Sepsis Screening Result: Possible Sepsis Risk - My Orders Last 24 Hours: My Active Orders 03/11/21 00:21 Peripheral IV Insertion Adult [OM.PC] Stat 03/11/21 00:22 Blood Culture x2 Reflex Set [OM.PC] Stat 03/11/21 00:25 CULTURE BLOOD [BC] Stat PROCALCITONIN [REF] Stat 03/11/21 00:44 CULTURE BLOOD [BC] Stat - Assessment/Plan Last 24 Hours: My Active Orders 03/11/21 00:21 Peripheral IV Insertion Adult [OM.PC] Stat 03/11/21 00:22 Blood Culture x2 Reflex Set [OM.PC] Stat 03/11/21 00:25 CULTURE BLOOD [BC] Stat PROCALCITONIN [REF] Stat 03/11/21 00:44 CULTURE BLOOD [BC] Stat
[2021-03-11 00:49] LABS: CHLORIDE,CL 106 mmol/L (98-107); SODIUM,NA 141 mmol/L (136-145)
[2021-03-11] MEDS ORDERED: Acetaminophen/HYDROcodone 325-10 MG Tab PO ONE (01:32)
== END 2021-03-11 02:36 | disposition home or self-care (01) ==
LOC: LL.ED 00:11
DX: K57.32 Diverticulitis of large intestine without perforation or abscess without bleeding (principal); I25.2 Old myocardial infarction; J44.9 Chronic obstructive pulmonary disease, unspecified; E66.9 Obesity, unspecified; Z88.6 Allergy status to analgesic agent; Z88.1 Allergy status to other antibiotic agents; Z88.8 Allergy status to other drugs, medicaments and biological substances; Z79.899 Other long term (current) drug therapy
CPT/HCPCS: 36415; 80053; 83605; 83690; 84145; 85025; 86140; 87040; 96365; 96375; 99284; 99284-25; A9270-GY; J0696; J1170; J1200; J3490; J7120

== ENCOUNTER 2021-11-09 19:15 | Emergency (ER) | payer BC, MEDICARE, OTHER ==
[2021-11-09 19:22] VITALS: BP 145/81; PULSE 74
== END 2021-11-09 20:00 | disposition home or self-care (01) ==
LOC: LL.ED 19:15
DX: S39.012A Strain of muscle, fascia and tendon of lower back, initial encounter (principal); E66.9 Obesity, unspecified; I25.2 Old myocardial infarction; J44.9 Chronic obstructive pulmonary disease, unspecified; Z88.6 Allergy status to analgesic agent; Z88.1 Allergy status to other antibiotic agents; Z88.8 Allergy status to other drugs, medicaments and biological substances; X50.1XXA Overexertion from prolonged static or awkward postures, initial encounter
CPT/HCPCS: 99283; 99284

== ENCOUNTER 2022-02-13 | Emergency (ER) | payer SELFPAY ==
[2022-02-13 00:03] VITALS: BP 140/88; PULSE 80
[2022-02-13 00:47] LABS: ANION GAP 7.7 meq/L (7-15); CHLORIDE,CL 107 mmol/L (98-107); ESTIMATED GFR > 60 mL/min; SODIUM,NA 144 mmol/L (136-145)
== END 2022-02-13 01:00 | disposition home or self-care (01) ==
LOC: LL.ED
DX: R42 Dizziness and giddiness (principal); J44.9 Chronic obstructive pulmonary disease, unspecified; I25.2 Old myocardial infarction; F17.210 Nicotine dependence, cigarettes, uncomplicated; E66.9 Obesity, unspecified; Z68.30 Body mass index [BMI] 30.0-30.9, adult; Z88.1 Allergy status to other antibiotic agents; Z88.8 Allergy status to other drugs, medicaments and biological substances
CPT/HCPCS: 36415; 70450; 80053; 81003; 83735; 84484; 85025; 93005; 93010; 99284; 99284-25

== ENCOUNTER 2022-02-26 14:58 | Emergency (ER) | payer SELFPAY ==
[2022-02-26 15:45] VITALS: BP 137/82; PULSE 82
[2022-02-26 16:12] LABS: CHLORIDE,CL 107 mmol/L (98-107); ESTIMATED GFR 110 mL/min (>=60); SODIUM,NA 143 mmol/L (136-145)
== END 2022-02-26 17:10 | disposition home or self-care (01) ==
LOC: LL.ED 14:58
DX: R55 Syncope and collapse (principal); F17.210 Nicotine dependence, cigarettes, uncomplicated; I25.2 Old myocardial infarction; J44.9 Chronic obstructive pulmonary disease, unspecified; E66.9 Obesity, unspecified; Z68.30 Body mass index [BMI] 30.0-30.9, adult; Z88.1 Allergy status to other antibiotic agents; Z88.8 Allergy status to other drugs, medicaments and biological substances; Z91.19 Patient's noncompliance with other medical treatment and regimen
CPT/HCPCS: 36415; 71046; 80053; 81001; 84443; 85025; 93005; 93010; 99284; 99284-25

== ENCOUNTER 2022-03-31 14:38 | Emergency (ER) | payer MEDICARE ==
[2022-03-31] MEDS: Sodium Chloride 0.9% 1,000 ML IV ONE (14:58)
[2022-03-31] MEDS: Al and Mag Hydroxide/Diphenhydramine/Lidocaine/Simethicone 237 ML Bottle PO PRN (15:14)
[2022-03-31 18:19] VITALS: BP 108/64; PULSE 88
== END 2022-03-31 16:15 | disposition home or self-care (01) ==
LOC: LL.ED 14:38
DX: J02.9 Acute pharyngitis, unspecified (principal); J44.9 Chronic obstructive pulmonary disease, unspecified; I25.2 Old myocardial infarction; E66.9 Obesity, unspecified; Z68.41 Body mass index [BMI] 40.0-44.9, adult; Z88.1 Allergy status to other antibiotic agents; Z88.8 Allergy status to other drugs, medicaments and biological substances
CPT/HCPCS: 87081; 87430; 99283; A9270-GY; J7030

== ENCOUNTER 2022-10-02 17:04 | Emergency (ER) | payer MEDICARE ==
[2022-10-02] MEDS: Sodium Chloride 0.9% 10 ML Syringe FLUSH PRN ×3 (17:34→19:24)
[2022-10-02] MEDS ORDERED: LORazepam 2 MG/ML SDV IVPUSH ONE ×2 (17:36→19:10)
[2022-10-02 17:54] LABS: ANION GAP 9.8 meq/L (7-15)
[2022-10-02 18:13] LABS: BARBITURATE SCREEN,URINE NEGATIVE (NEGATIVE); BENZODIAZEPINES SCREEN,URINE POSITIVE (NEGATIVE); EDDP,URINE SCREEN NEGATIVE (NEGATIVE); TCA SCREEN,URINE NEGATIVE (NEGATIVE); THC SCREEN,URINE 50 NG/ML NEGATIVE (NEGATIVE)
[2022-10-02 18:14] LABS: BUPRENORPHINE SCREEN,URINE NEGATIVE (NEGATIVE)
[2022-10-02 19:44] VITALS: BP 143/99; PULSE 103
== END 2022-10-02 19:40 | disposition home or self-care (01) ==
LOC: LL.ED 17:04
DX: F41.9 Anxiety disorder, unspecified (principal); I25.2 Old myocardial infarction; J44.9 Chronic obstructive pulmonary disease, unspecified; E66.9 Obesity, unspecified; Z68.41 Body mass index [BMI] 40.0-44.9, adult; Z88.1 Allergy status to other antibiotic agents; Z88.8 Allergy status to other drugs, medicaments and biological substances
CPT/HCPCS: 36415; 80053; 80305-QW; 81001; 82550; 84484; 85025; 93005; 96374; 96376; 99284; 99285-25; J2060; J3490

== ENCOUNTER 2024-01-03 01:29 | Emergency (ER) | payer MEDICARE ==
[2024-01-03 02:46] VITALS: BP 156/99; PULSE 82
== END 2024-01-03 02:37 | disposition home or self-care (01) ==
LOC: LL.ED 01:29
DX: F41.9 Anxiety disorder, unspecified (principal); I25.2 Old myocardial infarction; J44.9 Chronic obstructive pulmonary disease, unspecified; Z88.6 Allergy status to analgesic agent; Z88.1 Allergy status to other antibiotic agents; Z88.8 Allergy status to other drugs, medicaments and biological substances; Z79.899 Other long term (current) drug therapy; Z90.49 Acquired absence of other specified parts of digestive tract
CPT/HCPCS: 71046; 93005; 93010; 99283; 99284

== ENCOUNTER 2024-04-04 13:30 | Emergency (ER) | payer MEDICARE ==
[2024-04-04] MEDS ORDERED: Sodium Chloride 0.9% 10 ML Syringe FLUSH PRN (13:51)
[2024-04-04 13:56] LABS: BASOPHILS ABSOLUTE AUTO 0.02 K/uL (0.00-0.20); BASOPHILS PERCENT AUTO 0.2 % (0.0-2.0); EOSINOPHILS PERCENT AUTO 1.2 % (0.0-5.0); HEMATOCRIT 51.4 % (39.0-49.0); HEMOGLOBIN 17.1 g/dL (13.1-16.8); LYMPHOCYTES ABSOLUTE AUTO 1.93 K/uL (0.50-3.50); LYMPHOCYTES PERCENT AUTO 22.2 % (10.0-50.0); MEAN CORPUSCULAR HEMOGLOBIN 31.8 pg (28.2-33.3); MEAN CORPUSCULAR HGB CONC 33.3 g/dL (31.7-36.0); MEAN CORPUSCULAR VOLUME 95.7 fL (84.0-98.0); MONOCYTES ABSOLUTE AUTO 0.55 K/uL (0.00-1.00); MONOCYTES PERCENT AUTO 6.3 % (2.0-14.0); NEUTROPHILS ABSOLUTE AUTO 6.08 K/uL (1.40-7.00); NEUTROPHILS PERCENT AUTO 70.1 % (45.0-80.0); PLATELET COUNT,PLT 128 K/uL (150-350); RED BLOOD CELL COUNT 5.37 M/uL (4.33-5.41); RED CELL DISTRIBUTION WIDTH 14.1 % (11.2-14.1); WHITE BLOOD CELL COUNT,WBC 8.7 K/uL (4.0-10.2)
[2024-04-04 14:11] LABS: ALANINE AMINOTRANSFERASE,ALT 26 U/L (12-78); ALBUMIN 3.6 g/dL (3.4-5.0); ALKALINE PHOSPHATASE 85 IU/L (46-116); ANION GAP 8.8 meq/L (7-15); ASPARTATE AMNIOTRANSFERASE,AST 18 U/L (15-37); BILIRUBIN TOTAL 0.8 mg/dL (0.2-1.0); BLOOD UREA NITROGEN,BUN 5 mg/dL (7-18); CALCIUM 8.6 mg/dL (8.5-10.1); CARBON DIOXIDE,CO2 28.2 mmol/L (21.0-32.0); CHLORIDE,CL 104 mmol/L (98-107); CREATININE 0.88 mg/dL (0.51-1.17); GLUCOSE RANDOM 125 mg/dL (70-99); POTASSIUM,K 3.6 mmol/L (3.5-5.1); PROTEIN TOTAL,TP 7.3 g/dL (6.4-8.2); SODIUM,NA 141 mmol/L (136-145)
[2024-04-04 14:12] LABS: ESTIMATED GFR 108 mL/min (>=60)
[2024-04-04] MEDS: oxyCODONE 5 MG Tab PO ONE (14:22)
[2024-04-04] MEDS: Ketorolac 15 MG/ML SDV IVPUSH ONE (14:23)
[2024-04-04] MEDS: Clindamycin Phosphate in D5W 900 MG in Premix Bag 1 BAG IV ONE (14:26)
[2024-04-04] MEDS: Take Home: Clindamycin HCl 150 MG, 12 Cap Pack PO ONE (15:35)
[2024-04-04] MEDS: Take Home: oxyCODONE HCl 5 MG Tab, 5 Tab Pack PO ONE (15:36)
[2024-04-04 15:58] VITALS: BP 146/88; PULSE 87
== END 2024-04-04 15:44 | disposition home or self-care (01) ==
LOC: LL.ED 13:30
DX: K04.7 Periapical abscess without sinus (principal); I25.2 Old myocardial infarction; J44.9 Chronic obstructive pulmonary disease, unspecified; E66.9 Obesity, unspecified; F17.210 Nicotine dependence, cigarettes, uncomplicated; Z88.1 Allergy status to other antibiotic agents; Z88.8 Allergy status to other drugs, medicaments and biological substances; Z79.899 Other long term (current) drug therapy; Z90.49 Acquired absence of other specified parts of digestive tract
CPT/HCPCS: 36415; 80053; 85025; 96365; 96375; 99283-25; A9270-GY; J0736; J1885